=== PATIENT | female | born 1945 | race Caucasian/White ===

== ENCOUNTER 2024-01-02 08:54 | Outpatient (CLI) | payer MEDICARE, OTHER, SELFPAY ==
--- NOTE | 2024-01-02 09:15 | US_ITS ---
Patient: MYNOR RAINEY Facility:?[facility] Patient ID:?[id number] Site Patient ID:?[id number]. Site :?1945 Study:?US-Breast Right RT BREAST BIOPSY / DR. DUVALL TO RE-01/02/2024 11:04:03 AM Ordering Physician:?SCOTT CALDERON M.D. Final Report: ULTRASOUND-GUIDED BREAST BIOPSY AND POST-BIOPSY DIGITAL MAMMOGRAM FOR BIOPSY MARKER PLACEMENT CLINICAL HISTORY: Indeterminate nodule. COMPARISON STUDIES: 12/19/2023. TECHNIQUE: Real-time ultrasound with image documentation was used for targeting the breast lesion. Core biopsy specimens were obtained using an automated gun with a 18- gauge biopsy needle. Post-biopsy CC and ML digital mammograms were obtained to document position of the biopsy marker. CONSENT and TIME OUT: The procedure, risks, and alternatives were explained to the patient and a consent was signed. [place] Protocol was followed including pre-procedure verification that relevant information/documentation was available, reviewed and properly matched to the patient; consent accurate and complete; and equipment and supplies available. Time Out was conducted just prior to starting procedure to verify the four required elements: patient identity, correct side/site marked (if applicable), procedure, relevant images/results properly labeled and displayed (if applicable). PROCEDURE: The patient was positioned supine on the ultrasound table. The breast was prepped with ChloraPrep. 8 cc of 1 percent lidocaine used for local anesthesia. Core samples were obtained. A sterile metal biopsy clip was placed percutaneously to tico the lesion position within the breast. The specimens were placed in 10% formalin and sent to the pathology department. Pressure was held on the biopsy site until all bleeding subsided. The skin incision was closed with Steri-Strips. An ice pack was positioned over the biopsy site. Post-biopsy instructions were reviewed with the patient, and a written copy was given to her. LATERALITY: RIGHT breast. LESION: Hypoechoic solid nodule measuring 8 x 7 x 7 millimeters at 6 o`clock 7 cm from the nipple. SUSPICION FOR MALIGNANCY: High. NUMBER OF SAMPLES: 5. BIOPSY CLIP SHAPE: HydroMARK coil. PROXIMITY OF CLIP TO TARGET: Within the lesion. IMPRESSION: Ultrasound-guided breast biopsy. When the pathology report is available, an addendum to this report will be made. 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 This is concordant. Appropriate action recommended. Dictated by: Julio Cesar Duvall MD @01/08/2024 12:36:47 PM / CRL:tremaine Signed by: Julio Cesar Duvall @ 01/02/2024 9:34:44 PM (Electronic Signature) Signed by:?Julio Cesar Duvall MD @01/08/2024 2:11:13 PM (Electronic Signature)
--- NOTE | 2024-01-02 09:15 | US_ITS ---
Patient: MYNOR RAINEY Facility:?[facility] Patient ID:?[id number] Site Patient ID:?[id number]. Site :?1945 Study:?US-Extremity Right RT AXILLA BIOPSY / DR. DUVALL TO-01/02/2024 11:05:14 AM Ordering Physician:?SCOTT CALDERON M.D. Final Report: ULTRASOUND-GUIDED RIGHT AXILLARY LYMPH NODE BIOPSY CLINICAL HISTORY: Indeterminate prominent right axillary lymph node COMPARISON STUDIES: 12/19/2023 TECHNIQUE: Real-time ultrasound with image documentation was used for targeting the right axillary lesion. Core biopsy specimens were obtained using an automated gun with a 18-gauge biopsy needle. CONSENT and TIME OUT: The procedure, risks, and alternatives were explained to the patient and a consent was signed. [place] Protocol was followed including pre-procedure verification that relevant information/documentation was available, reviewed and properly matched to the patient; consent accurate and complete; and equipment and supplies available. Time Out was conducted just prior to starting procedure to verify the four required elements: patient identity, correct side/site marked (if applicable), procedure, relevant images/results properly labeled and displayed (if applicable). PROCEDURE: The patient was positioned supine on the ultrasound table. The right axilla was prepped with ChloraPrep. 8 cc of 1 percent lidocaine used for local anesthesia. Core samples were obtained. A sterile metal biopsy clip was placed percutaneously to tico the lesion position within the right axilla. The specimens were placed in 10% formalin and sent to the pathology department. Pressure was held on the biopsy site until all bleeding subsided. The skin incision was closed with Steri-Strips. An ice pack was positioned over the biopsy site. Post-biopsy instructions were reviewed with the patient, and a written copy was given to her. LATERALITY: Right axilla LESION: Mildly prominent right axillary lymph node measuring 2.3 x 0.6 x 1.0 cm, cortex mildly prominent measuring 3 millimeters within the right axilla. SUSPICION FOR MALIGNANCY: Moderate NUMBER OF SAMPLES: 5 BIOPSY CLIP SHAPE: Oval PROXIMITY OF CLIP TO TARGET: Within IMPRESSION: Ultrasound-guided right axillary lymph node biopsy. When the pathology report is available, an addendum to this report will be made. ACR not applicable Dictated by Julio Cesar Duvall MD @ 01/02/2024 12:43:23 PM --ADDENDUM-- ADDENDUM: Pathology consistent with benign lymph node tissue. No evidence for metastatic carcinoma. This is concordant. Appropriate action recommended regarding the positive RIGHT breast biopsy. Signed by:?Julio Cesar Duvall MD @01/02/2024 12:43:23 PM (Electronic Signature)
--- NOTE | 2024-01-02 10:00 | MM_ITS ---
Patient: MYNOR RAINEY Facility:?[facility] Patient ID:?[id number] Site Patient ID:?[id number]. Site :?1945 Study:?XRay-Breast Right 2D w/ CAD POST CLIP PLACEMENT-01/02/2024 10:16:27 AM Ordering Physician:Camila Final Report: PLEASE SEE ULTRASOUND-GUIDED RIGHT BREAST BIOPSY PERFORMED SAME DAY CRL:tremaine penaloza/Dictated by: Julio Cesar Goyal MD @ 01/02/2024 12:40:00 PM Signed by:?Julio Cesar Goyal MD @01/02/2024 9:34:39 PM (Electronic Signature)
== END 2024-01-02 08:55 | disposition home or self-care (01) ==
LOC: US 09:00
PROVIDERS: PCP Family Medicine; Visit Provider Family Medicine
DX: N63.10 Unspecified lump in the right breast, unspecified quadrant (principal); C50.911 Malignant neoplasm of unspecified site of right female breast; R22.31 Localized swelling, mass and lump, right upper limb; R92.8 Other abnormal and inconclusive findings on diagnostic imaging of breast
CPT/HCPCS: 19083; 38505; 76942; 77065; 88305; 88360; 88361; 88377; A4648; A4649

== ENCOUNTER 2024-01-24 12:35 | Outpatient (RCR) | payer MEDICARE, OTHER, SELFPAY ==
--- NOTE | 2024-01-24 15:38 | OT.OPLE2 ---
OT Outpatient Lymphedema Eval* OT Outpatient Lymphedema Eval* Start: 01/24/24 13:01 Freq: Status: Active Protocol: Document 01/24/24 13:37 AMB (Rec: 01/24/24 15:34 AMB [id number]) E-signed By Zora Dodge, OTR/L, CLT, DOCK SUPERINTENDENT OT Outpatient Evaluation Details Type Type Eval Complexity Low Insurance Information Insurance Information Insurance Information Medicare B,[employer] OT OP Lymphedema Evaluation Current Condition/Medical Diagnosis Referring Provider Dr Watts Treatment Diagnosis Risk for Lymphedema in RUE secondary to Breast CA Date Of Onset 01/25/24 Medical History Medical History HTN Medical History Comments Cardiac Stents, seasonal allergies Surgical History Surgical History Lumpectomy with 33 LN removed in the LUE 17 years ago secondary to breast CA, Cardiac stents Family History Family History of Lymphedema Yes Family History of Lymphedema Comments Pt has a hx of lymphedema in her LUE following breast CA with 33LN removed, 3 LN (+) for CA, pt states that her wellness director told her that she does not have lymphedema but she has morphea in her left arm so she has not been wearing any compression for years, she cannot remember how long. Pt states her left arm has been larger than her right arm but does not feel like it has grown larger since she discontinued her compression. Pt states prior to getting her garments, she had to wrap her arm for a long time. Pt states she was prescribed a steroid cream for her left arm and she feels this has been helping her morphea. Pt denies any hx of cellulitis. Current Work Status Current Work Status Retired Subjective Subjective Pt states she will undergo right breast lumpectomy tomorrow. Pt states they told her they would not need to take any LN as she did have a biopsy which indicated that it would not be necessary. Pt states she is not sure about radiation, will not know this until after her surgery. Pt likes to stay very active, she gardens and has a big house and yard to care for. Pt lost her 3 years ago, lives alone. Living Situation Current Living Situation Private Home/Apartment (Alone) Problem List Problem List Limited Knowledge of Lymphedema Treatment/Condition /Precautions,Limited Knowledge of Skin Care & Infection Precautions,Significant Risk For Infection For Lymphedema Related Complications,Does Not Have a HEP Exercise History Does Patient Exercise Regularly No Exercise Comments Pt states she does not do specific exercise on a regular basis but states she stays very busy. Pt is considering joining the [employer] [place], interested in the pool, discussed the benefit of aqua exercise in relationship to lymphedema. Pain Pain No ROM/Strength ROM/Strength Comments Pt demonstrates full, pain- free AROM of BUE, 5/5 MMT of BUE shoulders, elbows, wrists and hands. Previous Treatment Previous Treatment For Swelling/ MLD,Compression Garment,Multi- Lymphedema Layer Compression Bandages, Exercise,Elevation,Self Massage Previous Treatment/Current Home Program Lymphedema treatment, compression and home program for the LUE lymphedema 17 years ago, pt states she is no longer doing her HEP or wrapping, not using her garments either as her wellness director told her she did not have lymphedema. Compression History Does Patient Currently Wear Compression No During Daytime Does Patient Currently Wear Compression No At Night Current Swelling (Location/Pitting/Texture) Pitting Scale: 0 = No pitting 1+ Tissue returns to normal almost immediately 2+ Tissue returns after 15-30 seconds 3+ Tissue returns after 1-1/2 minutes 4+ Tissue returns after 2-3 minutes N/A Tissue no longer pits due to induration Tissue texture: Soft or indurated Triggering Event & Start Date of Pt will have lumpectomy Swelling/Lymphedema tomorrow, states she will not have LN removed but will possibly need radiation therapy. Clinical Presentation Pitting/Texture No swelling or pitting in the RUE, however, pt does have some mild pitting in the posterior aspect of the LUE elbow and forearm, measurement of the LUE is quite larger than the RUE, concerning that pt likely still has lymphedema in her LUE, encouraged her to consider wearing her garments again. Skin Changes Comments Pt does have skin discoloration/brown spots throughout BUE L>R, this is a symptom / presentation of morphea. Type of Swelling Post Surgery/Traumatic Edema Circumferential Measurements Upper Extremity Left Upper Extremity MCP (in cm) 18.8 Palm (in cm) 19.3 Smallest Wrist Measurement (in cm) 16.5 10 cm Above Smallest Wrist Measurement 22.5 20 cm Above Smallest Wrist Measurement 30.4 30 cm Above Smallest Wrist Measurement 31.8 40 cm Above Smallest Wrist Measurement 30.5 Total Girth in cm 169.8 UE Volume C 304.98 UE Volume D 560.86 UE Volume E 769.81 UE Volume F 772.27 Upper Extremity Volume Total in cm 2,407.92 Right Upper Extremity MCP (in cm) 19.4 Palm (in cm) 19.4 Smallest Wrist Measurement (in cm) 15.7 10 cm Above Smallest Wrist Measurement 19.8 20 cm Above Smallest Wrist Measurement 25.7 30 cm Above Smallest Wrist Measurement 29.3 40 cm Above Smallest Wrist Measurement 30.5 Total Girth in cm 159.8 UE Volume C 251.83 UE Volume D 414.17 UE Volume E 602.66 UE Volume F 711.52 Upper Extremity Volume Total in cm 1,980.18 Assessment Assessment Pt presents 1 day pre- operatively for initiation of lymphedema surveillance program. Following her left lumpectomy (pt states she will not need LN removed), if LN are removed, pt will be at risk for lymphedema in her RUE / upper quadrant due to LN removal. Pt mayneed radiation which would add to her risk. Pt will benefit from skilled OT intervention for pt education, monitoring / surveillance in order to provide early detection / intervention to assure best positive outcomes with fewer lymphedema related complications if the need arises. Pt demonstrates good interest and motivation to be an active participant in her care. Pt asked multiple pertinent questions and received satisfactory answers. Pt was given contact info and encouraged to reach out if more questions arise. Pt does like to regular exercise, especially swimming, and likes to keep active, lives a healthy lifestyle and acknowledges the value in regular medical visits. Pt may also benefit from resumption of treatment / management of her LUE due to lingering s/s of lymphedema, possibly combined with morphea . Patient Goals Patient Goals 1. Pt will demonstrate a general understanding of the lymphatic system, s/s of lymphedema, treatment of lymphedema, implications of untreated lymphedema, s/s of infection and the correlation of infection related to lymphedema. 3 months 2. Pt will be compliant with quarterly assessments for lymphedema surveillance in order to obtain early intervention with best outcomes if needed. 12 months Treatment Plan Treatment Plan Evaluation,Edema Control,Joint Mobilization,Manual Therapy, Wound Care/Scar Management, Therapeutic Exercise, Therapeutic Activities,Self- Care/Home Management,Education Other Treatment Plan 1 visit in 4 weeks, then one visit every 3 months for one year following surgery, or prn if concerns arise. Certification Certification Statement I Certify That: Therapy Services Provided, Therapy Plan Established, Therapy Plan Reviewed Certification Information Clinic ID # [id number] Initial Certification Date 01/24/24 Recertification Due Date 04/23/24 Provider Signature Shows Agreement With POC & Medical Necessity Physician Comment/Change Comment or Changes Physician NPI Number #
== END 2024-05-23 23:59 | disposition home or self-care (01) ==
PROVIDERS: PCP Family Medicine; Visit Provider Surgery
DX: C50.911 Malignant neoplasm of unspecified site of right female breast (principal); Z51.89 Encounter for other specified aftercare
CPT/HCPCS: 97165

== ENCOUNTER 2024-01-25 09:39 | Day surgery (SDC) | payer MEDICARE, OTHER, SELFPAY ==
--- OUTSIDE RECORDS SUMMARY | 2024-01-25 09:42 | XMS_ITS | Clinical Summary ---
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 Name Role Phone Rosario Faulkner DO Primary Care Provider [phone] Allergies No known active allergies Medications Medication Sig Dispensed Refills Start Date End Date Status ASPIRIN 81 MG TAB, DELAYED RELEASEIndications: Coronary atherosclerosis of unspecified type of vessel, sycuan or graft take 1 tablet (81 mg) by oral route once daily 0 7 Active LORazepam (ATIVAN) 0.5 mg tabIndications:Situ ational anxiety,Claustropho hoa Take 2 tabs po 1 hour prior to MRI for anxiety/claust ropobia 2 tablet 0 Active latanoprost (XALATAN) 0.005 % ophthalmic solution INSTILL 1 DROP RIGHT EYE AT BEDTIME 2 Active nitroglycerin (NITROSTAT) 0.4 mg sublingual tabletIndications:A therosclerosis of coronary artery of sycuan heart without angina pectoris, unspecified vessel or lesion type DISSOLVE 1TAB UNDER TONGUE NEEDED FOR CHEST PAIN, MAY REPEAT EVERY 5MINS, IF NO RELIEF AFTER 3 DOSES SEEK MEDICAL ASSISTANCE 25 Tablet 3 Active hydroCHLOROthiazide (HCTZ) 25 mg tabletIndications:E ssential hypertension Take 1 Tablet (25 mg) by mouth once daily. 90 Tablet 3 3 Active betamethasone dipropionate 0.05% (DIPROSONE 0.05% CREAM) 0.05 % creamIndications:Mo rphea Apply topically to affected area(s) two times daily. For the chest, back, neck and left arm 90 g 2 3 Active atorvastatin (LIPITOR) 80 mg tabletIndications:H yperlipidemia, unspecified hyperlipidemia type Take 1 Tablet (80 mg) by mouth at bedtime. 90 Tablet 3 4 Active levothyroxine (SYNTHROID) 112 mcg tabletIndications:H ypothyroidism, unspecified type Take 1 Tablet (112 mcg) by mouth once daily. 90 Tablet 3 4 Active montelukast (SINGULAIR) 10 mg tabletIndications:E nvironmental allergies Take 1 Tablet (10 mg) by mouth at bedtime. 90 Tablet 3 4 Active fluticasone (50 mcg per actuation) nasal solution (FLONASE)Indication s:Environmental allergies Inhale 2 Sprays to both nostrils once daily. 48 mL 1 4 Active timoloL maleate (TIMOPTIC) 0.5 % ophthalmic solution Place 1 Drop into both eyes once daily. 4 Active calcium carbonate (CALCIUM 600 ORAL) Take by mouth. Ac tive cholecalciferol (Vitamin D) 1,000 unit tablet Take 1,000 units by mouth once daily. Active B3/B5/B6/B7/folic/B 12/inosit/C (B COMPLEX-VITAMIN C ORAL) Take by mouth. Active ketoconazole 2% topical (NIZORAL) creamIndications:Se borrheic dermatitis Apply to affected area on nose, face twice daily as needed for scaling 30 g 2 4 Active carvediloL (COREG) 6.25 mg tabletIndications:A therosclerosis of coronary artery of sycuan heart without angina pectoris, unspecified vessel or lesion type TAKE 1 TABLET BY MOUTH TWICE A DAY WITH MEALS 180 Tablet 1 4 Active lisinopriL (PRINIVIL; ZESTRIL) 10 mg tabletIndications:E ssential hypertension TAKE 1 TABLET BY MOUTH EVERY DAY 90 Tablet 1 4 Active estradioL (ESTRACE) 0.01% (0.1 mg/g) vaginal creamIndications:Va ginal atrophy Apply 1 gm topically to affected areas for 10 days 42.5 g 3 3 024 Discontinued(*M ed complete/Regime n complete/Level of care change) carvediloL (Coreg) 6.25 mg tabletIndications:A therosclerosis of coronary artery of sycuan heart without angina pectoris, unspecified vessel or lesion type Take 1 Tablet (6.25 mg) by mouth two times daily with meals. 180 Tablet 3 3 024 Discontinued lisinopriL (PRINIVIL; ZESTRIL) 10 mg tabletIndications:E ssential hypertension Take 1 Tablet (10 mg) by mouth once daily. 90 Tablet 3 3 024 Discontinued Active Problems Problem Noted Date Diagnosed Date Stage 3a chronic kidney disease 09/19/2022 Hiatal hernia 09/19/2022 Overview: [address] - moderate with 2018 imaging IPMN (intraductal papillary mucinous neoplasm) 1 10/09/2017 Overview: Mucinous pancreatic neoplasm 1.6 cm - MRI 07/2018 - follow up MRI 1 year MRI 2019: 1. 1.7 cm cystic lesion within the pancreatic head which is most consistent with side-branch IPMN. No evidence for main duct extension. Recommend follow-up examination in 1 year. Microscopic colitis 10/24/2008 Overview: Colonoscopy done 09/2014 - due in 5 years Family history of colonic polyps 10/24/2008 Overview: Colonoscopy 10/2008, Colonoscopy in 5 years. Colonoscopy 09/2014 collagenous colitis, repeat in 5 year Colonoscopy 03/2020 normal, repeat in 5 years Unspecified essential hypertension 12/01/2006 DYSLIPIDEMIA Overview: Lipids 12/17 at the hospital Coronary atherosclerosis of unspecified type of vessel, sycuan or graft Overview: STATUS POST OLD MYOCARDIAL INFARCTION Unspecified hypothyroidism REMOTE HISTORY OF PLEURISY Malignant neoplasm of breast (female), unspecifi ed site Overview: 2006 Resolved Problems Problem Noted Date Diagnosed Date Resolved Date Tobacco use disorder 023 Encounters Date Type Department Care Team Description 01/15/2024 Refill [facility] [address], [place] [id number] Shaqra, Rosario Rica, DO Refill Request (Carvedilol, Lisinopril) 01/10/2024 9:20 AM CDT Preop Visit [facility] [address] [facility] [address] Shaqra, Rosario Rica, DO Blood Pressure (Continued elevated readings); Preoperative Exam ([facility] - Dr. Watts - Reji lumpectomy ) 01/09/2024 3:15 PM CDT Office Visit [facility] [address] [place] [address] Val Watts MD Consult (Right breast cancer referred by Dr. Opal Faulkner) 01/09/2024 Travel 01/09/2024 Orders Only [facility] [address] [facility] [address] Shaqra, Rosario Rica, DO 1 scan: (1-Ord) [place], ZAC CLIP REPLACEMENT RT, 01/02/2024 01/08/2024 Orders Only [facility] [address] [place] [address] Shaqra, Rosario Rica, DO 1 scan: (1-Ord) [facility], GUIDED BREAST BIOPSY RT, 01/02/2024 01/06/2024 Orders Only [facility] [address] [place] [address] Shaqra, Rosario Rica, DO 1 scan: (1-Ord) [facility], BIOSY LYMPH AXILLARY, 01/02/2024 01/02/2024 Lab Requisition [facility] [phone] Unknown, Doctor 01/02/2024 Lab Requisition [facility] [phone] Unknown, Doctor 12/28/2023 10:30 AM CDT [place] [facility] [place] [address] [place] [address] Francia Hernandez MD Derm Problem 12/28/2023 Travel 12/20/2023 Orders Only [facility] [address] [place] [address] Shaqra, Rosario Rica, DO <No scans attached> 12/19/2023 3:15 PM CDT Ancillary Procedure [facility] [address] [facility] [address] 12/19/2023 2:30 PM CDT Ancillary Procedure [facility] [address] [facility] [address] 12/19/2023 Ancillary Orders [facility] [address] [facility] [address] Shaqra, Rosario Rica, DO 12/19/2023 Travel 12/15/2023 2:20 PM CDT Ancillary Procedure [facility] [address] [facility] [address] 12/15/2023 1:45 PM CDT Orders Only [facility] [facility] [address] [place] [place] [facility] 12/15/2023 Travel 12/07/2023 Telephone [facility] [address] [facility] [address] Shaqra, Rosario Rica, DO Lab 11/17/2023 1:30 PM TRUCK SWITCHER Orders Only [facility] [address] [facility] [place] [facility] 11/17/2023 Telephone [facility] [address] [place] [address] Keithqra, Rosario Rica, DO Blood Pressure Readings 11/17/2023 Travel 10/30/2023 Telephone [facility] [address] Shaqra, Rosario Rica, DO Blood Pressure from Last 3 Months Immunizations Name Administration Dates Next Due AMB INFLUENZA IIV3 (AGE 65+ YRS) PF (Flu Clinic Only) 07/11/2019 AMB Influenza, IIV3 (Age >=3 years)(Flu Clinic Only) 07/09/2008 Amb Influenza, Inact (High-d ose) (Flu Clinic Only) 06/07/2016 COVID-19 vaccine (Moderna 100mcg/0.5mL) MD SAWYERV 11/27/2020,10/30/2020 Influenza, High-dose Inactivated 018,06/07/2016,06/18/2015,06/16,07/07/2013 Influenza, High-dose Quadriv alent Inactivated 06/07/2023,05/11/2022 Influenza, IIV3 (Age 6-35 mos) 06/20/2011,2009 Influenza, IIV3 (Age >=3 years) 06/27/20 12,06/20/2011,05/25/2010,06/10,07/09/2008,07/12/2007,06/28/2005 ,07/16/2004 Influenza, Inactivated AIIV4 (Age 65+ Years) Preserv Free 05/24/2021 Influenza, Inactivated IIV3 (Age 65+ Years) Preserv Free 07/01/2018,06/13/2017 Pneumococcal Conj 20-valent (Prevnar 20) 06/14/2023 Pneumococcal Poly,23-Valent (Pneumovax) 06/16/2014,06/10/2009 Pneumococcal conj 13-Valent (Prevnar 13) 03/16/2015 RSV, Recombinant ADJ Reconst ituted (Arexvy 120MCG/0.5mL) 07/13/2023 Tdap 12/07/2018,12/18/2006 Zoster (Shingrix-RZV, recombinant) 04/20/2020, Zoster (Zostavax-ZVL, live) 10/05/2012 Family History Medical History Relation Name Comments Cancer-prostate Brother 60's yrs old Genetic Other 1 Great Grandmoth er Glaucoma~Grandparent Hypertension Genetic Other 2 Parents-t Hyper tension~diabetes - nephew Genetic Other 3 Parents-t Hyper tension~Migraines- younger brother ~diabetes - nephew Genetic Other 4 Family history is significant for premature coronary artery disease. Cancer No Family History Cancer-breast No Family History Cancer-colon No Family History Cancer-ovarian No Family History Relation Name Status Comments Brother Other 1 Other 2 Other 3 Other 4 Social History Tobacco Use Types Packs/Day Years Used Date Smoking Tobacco: Former Cigarettes 1 30 0 09/11/1973 - 09/11/2003 Smokeless Tobacco: Never Tobacco Cessation:Counseling Given: Yes Alcohol Use Standard Drinks/Week Comments Yes 0 (1 standard drink = 0.6 oz pur e alcohol) occassionally PHQ-2 Answer Date Recorded PHQ-2 TOTAL SCORE 0 10/20/2023 Social Connections Answer Date Recorded Frequency of Communication with Friends and Fami ly 0 01/10/2024 Financial Resource Strain Answer Date R ecorded Difficulty of Paying Living Expenses 3 01/10/2024 Difficulty of Paying Living Expenses Not on file 01/10/2024 Food Insecurity Answer Date Recorded Worried About Running Out of Food in the Last Ye ar 1 01/10/2024 Transportation Needs Answer Date Record ed Lack of Transportation (Medical) 1 01/10/2024 Housing Stability Answer Date Recorded Unable to Pay for Housing in the Last Year 1 01/10/2024 Sex and Gender Information Value Date Recorded Sex Assigned at Not on file Gender Identity Not on file Sexual Orientation Not on file Obstetrics History Para Term AB IAB SAB Ectopic Multiple Livin g Live Births 0 0 0 0 0 0 0 0 0 0 Last Filed Vital Signs Vital Sign Reading Time Taken Comments Blood Pressure 130/72 01/10/2024 10:05 AM CDT Pulse 67 01/10/2024 9:32 AM CDT Temperature 36.1 ??C (97 ??F) 11/07/2022 12:00 PM TRUCK SWITCHER Respiratory Rate 16 11/07/2022 1:35 PM TRUCK SWITCHER Oxygen Saturation 96% 01/10/2024 9:32 AM CDT Inhaled Oxygen Concentration - - Weight 78 kg (172 lb) 01/10/2024 9:32 AM CDT Height 163.8 cm (5' 4.5) 10/20/2023 12:59 PM CS T Body Mass Index 29.07 10/20/2023 12:59 PM TRUCK SWITCHER Plan of Treatment Upcoming Encounters Date Type Department Care Team (Late st Contact Info) Description 12/30/2024 10:30 AM CDT Office Visit [facility] [address] [place] [phone] Francia Hernandez MD [address] [place] [phone] Health Maintenance Due Date Last Done Comments COVID-19 vaccine series ( season) 2023 06/22/2023, 07/26/2022, 02/06/2022, Additional history exists Influenza for age 65+ 05/12/2024 06/07/2023 , 05/11/2022, 05/24/2021, Additional history exists BMI (ht and wt on same day) for age 18+ 10/20/2024 10/20/2023, 09/19/2022, 05/24/2021, Additional history exists Depression screening for age 12+ 10/20/2024 10/20/2023, 09/19/2022, 09/19/2022, Additional history exists Medicare Wellness for age 65+ 10/20/2024, 09/19/2022, 05/24/2021, Additional history exists Tetanus booster 12/07/2028 12/07/2018, 05/2007, 12/18/2006 [facility] Colonoscopy through age 75 03/17/203003/17, 03/17/2020, 03/17/2020, Additional history exists Tdap Completed 12/07/2018, 12/18/2006 Hepatitis C screening for ag e 18-79 Completed 11/06/2019 Zoster (shingles) series for age 50+ Completed 04/20/2020, 09/20/2019, 10/05/2012 DEXA/DXA scan for age 65+ Completed 2020, 08/07/2012, 10/09/2008 Pneumococcal series for age 65+ Completed 06/14/2023, 03/16/2015, 06/16/2014, Additional history exists Medical Devices Implanted Type Area Pipe Cutter Device Identifier Shelf Expiration Date Model / Serial / Lot Port X Port Mri 6fr Venous Cath Kit [id number] - [id number] Implanted:Qty: 1 on 08/21/2007 at [facility] Left: Subclavian Vein [employer] [id number] / / [id number] Procedures Procedure Name Priority Date/Time Associated Diagnosis Comments POTASSIUM Routine 01/10/2024 10:17 AM CDT Pre-op exam CREATININE Routine 01/10/2024 10:17 AM CDT Pre-op exam TSH WITH REFLEX Routine 01/10/2024 10:17 AM CDT Hypothyroidism, unspecified type LAB TRACKING EVENT Routine 01/02/2024 9: 45 AM CDT PATH BREAST CORE BIOPSY Routine 01/02/2024 9:45 AM CDT CG HER2 BREAST Routine 01/02/2024 9:45 AM CDT CYTOGENETICS MALIGNANT TISSUE Routine 01/02/2024 9:45 AM CDT XR MAMMO POST CLIP PLCMT RT Routine 01/02/2024 12:00 AM CDT Abnormal mammogram of right breast US BIOPSY BREAST NEEDLE W BELL W GUIDE RIGHT [facility] 01/02/2024 12:00 AM CDT Abnormal mammogram of right breast US BIOPSY LYMPH NODE BREAST CENTER [facility] 01/02/2024 12:00 AM CDT Abnormal mammogram of right breast US BREAST UNILATERAL RIGHT LIMITED ERIN 12/19/2023 2:59 PM CDT Abnormal mammogram XR MAMMO ADRIENNE UNI ADDL VIEWS RIGHT [facility] 12/19/2023 2:41 PM CDT Abnormal mammogram XR MAMMO ADRIENNE BILAT SCREEN Routine 12/15/2023 2:18 PM CDT Visit for screening mammogram BASIC METABOLIC PANEL Routine 12/15/2023 1:55 PM CDT Unspecified essential hypertension BASIC METABOLIC PANEL Routine 11/17/2023 1:44 PM TRUCK SWITCHER Elevated serum creatinine XR DXA BONE DENSITY 2 SITES AXIAL Routine 06/21/2021 12:00 PM CDT Menopause COLONOSCOPY 03/17/2020 8:03 AM CDT ANTI HCV Add On 11/06/2019 2:08 PM TRUCK SWITCHER Need for hepatitis C screening test from Last 3 Months or Most Recently Relevant to Health Maintenance Results * TSH WITH REFLEX (01/10/2024 10:17 AM CDT) TSH 0.49 0.27 - 4.20 uIU/mL 01/10/2024 10:38 PM CDT [facility] Blood BLOOD SPECIMEN / Unknown Butterfly / Unknown 01/10/2024 10:17 AM CDT 01/10/2024 10:19 AM CDT Narrative [facility] - 01/10/2024 10:38 PM CDT In Adults, TSH values between 5.00 and 10.00 uIU/ml do not necessarily indicate the presence of Hypothyroidism. Correlation with clinical findings such as presence of goiter and/or Thyroperoxidase (TPO) Antibody may be helpful. For more information please refer to ANTHONY 2004; 291: 228-238. [employer] CHEMISTRY Performing Organization Address City/[facility]/ZIP Co de Phone Number [facility] [address] [place] [address], * POTASSIUM (01/10/2024 10:17 AM CDT) Pathologist [facility] POTASSIUM 4.5 3.5 - 5.1 mmol/L 01/10/2024 10:38 PM CDT [facility] Blood BLOOD SPECIMEN / Unknown Butterfly / Unknown 01/10/2024 10:17 AM CDT 01/10/2024 10:19 AM CDT [employer] CHEMISTR[facility] Performing Organization Address City/[facility]/ZIP Co de Phone Number [facility] [address] [place] [address], * (ABNORMAL) CREATININE (01/10/2024 10:17 AM CDT) eGFR 40(L) >90 mL/min/1.7 3m2 01/10/2024 10:38 PM CDT [facility] Comment:As of 2021, eG FR is calculated by the CKD-EPI creatinine equation without race adjustment. ??eGFR can be influenced by muscle mass, exercise, and diet. ??The reported eGFR is an estimation only and is only applicable if the renal function is stable. CREATININE 1.36(H) 0.50 - 0.90 mg/dL 01/10/2024 10:38 PM CDT [facility] Blood BLOOD SPECIMEN / Unknown Butterfly / Unknown 01/10/2024 10:17 AM CDT 01/10/2024 10:19 AM CDT Rosarioopal Strauss Keithlulu DO CHEMISTRY Performing Organization Address [facility] Co de Phone Number [facility] [address] [place] [address], * LAB TRACKING EVENT (01/02/2024 9:45 AM CDT) Other (Other) Client Collect / Unknown 01/02/2024 9:45 AM CDT 01/02/2024 9:15 PM CDT Doctor Unknown LAB BILL ONLY Performing Organization Address [facility] Co de Phone Number [facility] [address] [place] [address], * PATH BREAST CORE BIOPSY (01/02/2024 9:45 AM CDT) Case Report Pathology Report ?Case: [id number] ? Authorizing Provider: ??Unknown, Doctor ?Collected: ? 01/02/2024 0945 ? Ordering Location: ? [facility] ?Received: ?01/03/2024 0811 ? Pathologist: ? Carlita Cox MD ? Specimens: ?? A) - Right Breast Core Ultrasound Biopsy ? B) - Right Axilla ? 01/09/2024 4:52 PM CDT [facility] Amendment 01/05/2024 - Amendment issued to incorporate ancillary studies. 01/09/2024 - Amendment issued to incorporate ancillary HER2 FISH studies. 01/09/2024 4:52 PM CDT [facility] Final Diagnosis A) RIGHT BREAST, 6:00, 7 CM FROM NIPPLE, ULTRASOUND-GUIDED CORE BIOPSY: 1. 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 a. Carrollton grade: I of III; Tristen score: 5 of 9 ?? b. Angio-lymphatic invasion: Absent ?? c. Associated DCIS: Present ?? d. Subtype: Solid ? e. Grade of DCIS: 2 of 3 2. Breast Ancillary Testing: ?a. Hormone Receptors: ?Estrogen receptor: Positive (99%, strong staining) ?Progesterone receptor: Negative ?b. HER2 by IHC: Equivocal (2+ by manual morphometry) ? HER2 by FISH: Negative ?HER2/CEP17 ratio: 1.16 ?HER2 signals/cell: 2.32 ?CEP17 signals/cell: 2.00 ?c. Ki-67: 5% by image analysis B) RIGHT AXILLA, LYMPH NODE, ULTRASOUND-GUIDED CORE BIOPSY: 1. Fragments of benign lymph node 2. Negative for metastatic carcinoma in this sampling 01/09/2024 4:52 PM CDT [facility] Amendment electronically signed by Curt Parker MD on 01/09/2024 at 4:52 PM Amendment electronically signed by Sugar Cloud MD on 01/05/2024 at 11:44 AM Comment A, B) These are image-guided breast biopsies. The pathologic findings should be correlated with radiologic and clinical findings prior to treatment decisions. Case seen in consultation with Dr. Richardson 01/09/2024 4:52 PM T [facility] Clinical Information SITE A: INDICATION: Right breast mass Lesion description: Irregular indistinct hypoechoic mass Dimensions: 8 x 7 x 7 mm Location: Right breast, 6:00, 7 cm from nipple SITE B: INDICATION: Right axillary lymph node with mild cortical thickening Lesion description: Oval circumscribed and solid Dimensions: 2.3 x 0.6 x 1 cm Location: Right axillary lymph node 01/09/2024 4:52 PM T [facility] Gross Description A) Label: ??Patient's name and right #1 breast Description: 3 Fibrofatty core biopsies Size: 2.1 cm in length by 0.1 cm in diameter Ink color: Black The specimen is submitted in toto in one cassette. Cold ischemic time: Less than 60 minutes, meets current ASCO/CAP guidelines. ?? The specimen was fixed in formalin for a minimum of 6 hours and not longer than 72 hours. B) Label: ??Patient's name and #2 axilla lymph node Description: 3 fibrofatty core biopsies Size: 1.7 cm in length by 0.1 cm in diameter Ink color: Blue The specimen is submitted in toto in one cassette. Cold ischemic time: Less than 60 minutes, meets current ASCO/CAP guidelines. ?? The specimen was fixed in formalin for a minimum of 6 hours and not longer than 72 hours. TRS 01/03/2024. 01/09/2024 4:52 PM CDT [facility] Microscopic Description The final diagnosis is based on microscopic examination of appropriate sections of all specimens. A) The presence of black ink is confirmed on tissue sections. B) The presence of blue ink is confirmed on tissue sections. 01/09/2024 4:52 PM CDT [facility] Cytogenetics Summary Cytogenetic testing has been ordered and will be reported separately. 01/09/2024 4:52 PM T [facility] REPORTING Breast Biomarker Reporting Template BREAST: BIOMARKER REPORTING TEMPLATE - A Protocol posted: 11/30/2022 ?? Test(s) Performed: ? Estrogen Receptor (ER) Status: ?Positive (greater than 10% of cells demonstrate nuclear positivity) ? Percentage of Cells with Nuclear Positivity: ?99 % ? Average Intensity of Staining: ?Strong ? Test Type: ?Laboratory-deve loped test ? Primary Antibody: ?SP1 ?? Test(s) Performed: ? Progesterone Receptor (PgR) Status: ?Negative (less than 1%) ? : ?Internal control cells absent ? Test Type: ?Laboratory-deve loped test ? Primary Antibody: ?636 ?? Test(s) Performed: ? HER2 by Immunohistochemis try: ?Equivocal (Score 2+) ? Percentage of Cells with Uniform Intense Complete Membrane Staining: ?0 % ? Test Type: ?Laboratory-deve loped test ? Primary Antibody: ?4B5 ?? Test(s) Performed: ? HER2 by in situ Hybridization: ?Negative (not amplified) ? Number of Observers: ?2 ? Number of Invasive Tumor Cells Counted: ?25 cells ? Method: ?Dual probe assay ? Average Number of HER2 Signals per Cell: ?2.32 ? Average Number of CEP17 Signals per Cell: ?2 ? HER2 / CEP17 Ratio: ?1.16 ? Aneusomy: ?Not identified ? Heterogeneous Signals: ?Not identified ? Test Type: ?Food and Drug Administration (FDA) cleared (test / vendor): [employer] HER2/Curtis ?? Test(s) Performed: ?Ki-67 ? Ki-67 Percentage of Positive Nuclei: ?5 % ? Primary Antibody: ?MIB1 ?? Cold Ischemia and Fixation Times: ?Meet requirements specified in latest version of the ASCO / CAP Guidelines ?? Testing Performed on Block Number(s): ?A1 METHODS ?? Fixative: ?Formalin ?? Image Analysis: ?Performed ? Method: ?Aperio morphometric analysis ? Biomarkers Scored by Image Analysis: ?ER ? Biomarkers Scored by Image Analysis: ?PgR ? Biomarkers Scored by Image Analysis: ?Ki-67 ?? Comment(s): ?1,726 NUCLEI ANALYZED FOR KI67. The FDA approved [employer] DNA Probe Kit was developed and its performance characteristics determined by Scan. ??This test incorporates minor modifications to protocol and validated by the [facility] and [facility] to yield equivocal or superior performance. This FISH test uses a multiplex probe stain procedure. 01/09/2024 4:52 PM CDT [facility] Additional Information Interpreted at [facility], Central Laboratory - [address] [facility] [address], [place] [address] Patients with breast cancers that are HER2 IHC 3+ or IHC 2+/GIORGIO amplified may be eligible for several therapies that disrupt HER2 signaling pathways. Invasive breast cancers that test 'HER2-negative' (IHC 0, 1+ or 2+/GIORGIO not-amplified) are more specifically considered 'HER2-negative for protein overexpression/ge ne amplification' since non-overexpressed levels of the HER2 protein may be present in these cases. Patients with breast cancers that are HER2 IHC 1+ or IHC 2+/GIORGIO not amplified may be eligible for a treatment that targets non-amplified/non -overexpressed levels of HER2 expression for cytotoxic drug delivery (IHC 0 results do not result in eligibility currently). 01/09/2024 4:52 PM CDT [facility] Other (Right Breast Core Ultrasound Biopsy) 01/02/2024 9:45 AM CDT 01/03/2024 8:11 AM CDT Specimen (specimen) (Right Axilla) 01/02/2024 9:48 AM CDT 01/03/2024 8:11 AM CDT Doctor Unknown PATHOLOGY/CYTOLOGY Performing Organization Address City/[facility] Co de Phone Number [facility] [address] [address], [place] * CG HER2 BREAST (01/02/2024 9:45 AM CDT) Other (Right Breast Core Ultrasound Biopsy) 01/02/2024 9:45 AM CDT 01/05/2024 11:44 AM CDT Doctor Unknown LABORATORY Performing Organization Address City/[facility]/ZIP Co de Phone Number [facility] [address] [address], [place] * CYTOGENETICS MALIGNANT TISSUE STUDIES (01/02/2024 9:45 AM CDT) RFR Breast cancer 01/09/2024 1:01 PM CDT [facility] TEST & RESULT SUMMARY HER2 FISH Breast: See pathology report [id number]. See comments. 01/09/2024 1:01 PM CDT [facility] N[facility] _ 01/09/2024 1:01 PM CDT [facility] [place] Ebook GlueAL LABORATORY COMMENTS This record is used as an internal laboratory test designed for workflow purposes only. 01/09/2024 1:01 PM CDT [facility]-CE NTRAL LABORATORY SOURCE Right Breast Core Ultrasound Biopsy (Paraffin Slides A1 2 uns) [id number] 01/09/2024 1:01 PM CDT [facility]-CE NTRHI LABORATORY Other (Right Breast Core Ultrasound Biopsy) 01/02/2024 9:45 AM CDT 01/05/2024 11:44 AM CDT Doctor Unknown LABORATORY [facility] [address] [place] [address], [place] * US BIOPSY LYMPH NODE BREAST CENTER (01/02/2024 12:00 AM CDT) Anatomical Region Laterality Modality Breast Left Ultrasound Rosario Rica Shaqra DO US * US BIOPSY BREAST NEEDLE W BELL W GUIDE RIGHT (01/02/2024 12:00 AM CDT) Anatomical Region Laterality Modality Breast Right Right Ultrasound Rosario Rica Shaqra DO US * XR MAMMO POST CLIP PLCMT RT (01/02/2024 12:00 AM CDT) Anatomical Region Laterality Modality BREASTS N/A Mammography Rosario Rica Shaqra DO MAMMO * US BREAST UNILATERAL RIGHT LIMITED (12/19/2023 2:59 PM CDT) Anatomical Region Laterality Modality BREASTS, Breast Right Right Ultrasound Narrative 12/19/2023 3:58 PM CDT For Patients: As a result of the Century Cures Act, medical imaging exams and procedure reports are released immediately into your electronic medical record. ??You may view this report before your referring provider. ?? If you have questions, please contact your health care provider. RIGHT BREAST ULTRASOUND, 12/19/2023 PLEASE SEE [id number] FOR DIGITAL RIGHT MAMMOGRAM SAME DAY. Rosario Rica Shaqra DO US * XR MAMMO ADRIENNE UNI ADDL VIEWS RIGHT (12/19/2023 2:41 PM CDT) Anatomical Region Laterality Modality BREASTS, Breast Right Mammograph y 12/19/2023 3:27 PM CDT Impressions 12/19/2023 3:58 PM CDT Suspicious mass RIGHT breast 6 o'clock 7 cm from the nipple measuring 8 x 7 x 7 millimeters. Indeterminate RIGHT axillary lymph node measuring 2.3 x 0.6 x 1.0 cm. RECOMMENDATIONS: Ultrasound-guided core needle biopsy of the RIGHT breast lesion and RIGHT axillary lymph node. Results and recommendations discussed with the patient. BI-RADS Category 4: Suspicious Dictated by: Julio Cesar Goyal MD @12/19/2023 3:27:05 PM PATIENTS: You will also receive a letter with your examination results in an easy to read format. ??If you have questions about your results, please contact your referring provider. Narrative 12/19/2023 3:58 PM CDT For Patients: As a result of the Cures Act, medical imaging exams and procedure reports are released immediately into your electronic medical record. ??You may view this report before your referring provider. ?? If you have questions, please contact your health care provider. ADDITIONAL VIEWS RIGHT DIGITAL MAMMOGRAM USING TOMOSYNTHESIS, 12/19/2023 RIGHT BREAST ULTRASOUND, 12/19/2023 CLINICAL HISTORY: RIGHT breast mass/asymmetry. COMPARISON: 12/15/2023. TECHNIQUE: Digital RIGHT mammogram in two projections. ??Tomosynthesis utilized. ?? Real-time ultrasound imaging of RIGHT breast with imaging documentation. BREAST COMPOSITION: There are areas of scattered fibroglandular density. FINDINGS: 3D spot compression CC/MLO RIGHT breast mammogram images submitted. Persistent density with architectural distortion posterior RIGHT breast at the inferior aspect. Adjacent benign calcification. Targeted RIGHT breast ultrasound performed. At 6 o'clock 7 cm from the nipple, there is a hypoechoic irregularly marginated mass with distal acoustic shadowing. This is taller than wide measuring 8 x 7 x 7 millimeters. RIGHT axillary lymph node is present measuring 2.3 x 0.6 x 1.0 cm with possible mild thickening of the cortex. Rosario Rica Faulkner DO MAMMO * XR MAMMO ADRIENNE BILAT SCREEN (12/15/2023 2:18 PM CDT) Anatomical Region Laterality Modality BREASTS, Breast Left, Breast Right Bilateral Mammography 12/15/2023 3:09 PM CDT Impressions 12/15/2023 4:30 PM CDT RIGHT breast asymmetry/mass. RECOMMENDATIONS: Additional mammographic views of the RIGHT breast including 3D spot compression CC/MLO. RIGHT breast ultrasound may also be required. BI-RADS Category 0: Incomplete: Need Additional Imaging Evaluation and/or Prior Mammograms for Comparison A member of the breast health care team will contact the patient to schedule the required additional imaging appointment(s). Dictated by: Julio Cesar Goyal MD @12/15/2023 3:09:46 PM / Echo PATIENTS: You will also receive a letter with your examination results in an easy to read format. ??If you have questions about your results, please contact your referring provider. Narrative 12/15/2023 4:30 PM CDT For Patients: As a result of the Cures Act, medical imaging exams and procedure reports are released immediately into your electronic medical record. ??You may view this report before your referring provider. ?? If you have questions, please contact your health care provider. BILATERAL DIGITAL SCREENING MAMMOGRAM WITH TOMOSYNTHESIS AND COMPUTER-AIDED DETECTION, 12/15/2023 CLINICAL HISTORY: Routine screening exam. COMPARISON: 11/22/2022, 11/15/2021. TECHNIQUE: Digital mammogram in CC and MLO projections including computer-aided detection (CAD). Tomosynthesis utilized. BREAST COMPOSITION: There are areas of scattered fibroglandular density. FINDINGS: RIGHT Breast: Focal asymmetric density lower breast 8 cm from the nipple. LEFT Breast: No suspicious findings. Rosario Rica Shaqra DO MAMMO * (ABNORMAL) BASIC METABOLIC PANEL (12/15/2023 1:55 PM CDT) Only the most recent of2 resultswithin the time period is included. SODIUM 133(L) 136 - 145 mmol/L 12/15/2023 10:16 PM CDT [facility] POTASSIUM 5.0 3.5 - 5.1 mmol/L 12/15/2023 10:16 PM CDT [facility] CHLORIDE 97(L) 98 - 107 mmol/L 12/15/2023 10:16 PM CDT [facility] CO2,TOTAL 24 22 - 29 mmol/L 12/15/2023 10:16 PM CDT [facility] ANION GAP 12 5 - 18 12/15/2023 10:16 PM CDT [facility] GLUCOSE 84 70 - 99 mg/dL 12/15/2023 10:16 PM CDT [facility] CALCIUM 9.3 8.8 - 10.2 mg/dL 12/15/2023 10:16 PM CDT [facility] BUN 22 8 - 23 mg/dL 12/15/2023 10:16 PM CDT [facility] CREATININE 1.20(H) 0.50 - 0.90 mg/dL 12/15/2023 10:16 PM CDT [facility] BUN/CREAT RATIO 18 10 - 20 10:16 PM CDT [facility] eGFR 47(L) >90 mL/min/1.7 3m2 12/15/2023 10:16 PM CDT [facility] Comment:As of 2021, eG FR is calculated by the CKD-EPI creatinine equation without race adjustment. ??eGFR can be influenced by muscle mass, exercise, and diet. ??The reported eGFR is an estimation only and is only applicable if the renal function is stable. Blood BLOOD SPECIMEN / Unknown Butterfly / Unknown 12/15/2023 1:55 PM CDT 12/15/2023 1:55 PM CDT Rosario Faulkner DO [facility] [address] [place] [address], * XR DXA BONE DENSITY 2 SITES AXIAL (06/21/2021 12:00 PM CDT) Anatomical Region Laterality Modality Spine, HIPS, HIPL, HIPR Other Impressions 06/29/2021 1:05 PM CDT Normal bone density. RECOMMENDATIONS: The National Osteoporosis Foundation recommends pharmacologic treatment for patients with T-scores of -2.5 or less, patients with prior history of fragility fractures, or patients with 10-year probability of greater than 3% at hips or greater than 20% of suffering major osteoporotic fractures. Recommend continued optimization of calcium and vitamin D intake through dietary means and/or supplementation and regular exercise. Repeat scan recommended in 3-5 years. Farzana Isabel PA-C [facility] 06/29/2021 Narrative 06/29/2021 1:05 PM CDT For Patients: Results are automatically released to your [facility] ([email or web address]) account once available, in compliance with federal regulations. This means that you may see your results before your provider has had a chance to review them. Please allow 2-3 business days for your provider to comment on the results. XR DXA Bone Mineral Density (BMD) EXAM LOCATION: [address] [address] PATIENT NAME: Iram Napier DATE OF : 1945 EXAM DATE: 06/21/2021 REQUESTING PROVIDER: Lee Ann Delcid MD GENDER AT : female HEIGHT: 5' 4.76 (05/24/2021) WEIGHT: ??172 lb (05/24/2021) MENOPAUSAL STATUS: Postmenopausal RACE/ETHNICITY: White RISK FACTORS: Cancer Treatment and White Race CURRENT MEDICATION FOR BONE LOSS: NONE INDICATION: Screening for osteoporosis COMPARISON DATE(S): 2011 DXA scans are compared to prior studies for a patient only when the two (or more) studies were performed on the same scanner. It is not possible to compare data generated on one scanner to data from another because there are not standards in DXA equipment. This applies even if the two scanners are made by the same press setter. PROCEDURE: Dual-energy x-ray absorptiometry performed with routine technique. Reporting is completed in the form of a T-score. The T-score represents the standard deviation from peak bone mass based on young healthy adult. A Z-score is used for diagnosis in premenopausal women, and for men under the age of 50. FINDINGS: RESULT LUMBAR SPINE L1 - L4 BMD: 1.180 g/cm2 T-Score: - 0.1 Z-Score: + 1.2 Change from prior in 2012: ??Increase 7.2%. RESULTS FEMUR Left femoral neck BMD: 0.968 g/cm2 T-Score: - 0.5 Z-Score: + 1.1 Change from prior in 2012: ??Decrease 5.3%. Right femoral neck BMD: 0.947 g/cm2 T-Score: - 0.7 Z-Score: + 1.0 Change from prior in 2012: ??Decrease 6.3%. Left hip BMD: 1.039 g/cm2 T-Score: + 0.2 Z-Score: + 1.7 Change from prior in 2012: ??Decrease 4.7%. Right hip BMD: 1.035 g/cm2 T-Score: + 0.2 Z-Score: + 1.6 Change from prior in 2012: ??Decrease 6.5%. WHO criteria: Normal: T-score at or above -1 SD Osteopenia: T-score between -1.1 and -2.4 SD Osteoporosis: T-score at or below -2.5 SD Lee Ann Delcid MD DEXA * COLONOSCOPY (03/17/2020 8:03 AM CDT) 03/17/2020 8:03 AM CDT Narrative Transcriptions Mark Abreu MD - 03/17/2020 9:23 AM CDT Patient Name: Iram Napier Procedure Date: 03/17/2020 Gender: Female Date of : 1945 Admit Type: Outpatient Procedure: Colonoscopy Proceduralist: Mark Abreu MD , Janeen Horne (Nurse), Nneka Lai (Nurse) Indications/Pre-Op Diagnosis: Colon cancer screening in patient atincreased risk: Family history of 1st-degree relative with colon polyps before age 60 years, Last colonoscopy: September 2014 Medications: Fentanyl 200 micrograms IV, Midazolam 4 mgIV, The level of sedation administered wasmoderate Procedure Description: The patient had risks, benefits and alternatives explained to andgave informed consent. The patient had a stable cardiopulmonary status and judged an adequate candidate for conscious sedation. The [id number] was passed through the anus and advanced tothe cecum, identified by appendiceal orifice and ileocecal valve. The colonoscopy was performed without difficulty. The patient toleratedthe procedure well. The quality of the bowel preparation was good. The ileocecal valve, appendiceal orifice, and rectum were photographed. Complications: No immediate complications. Estimated Blood Loss & Specimen: Estimated blood loss: none. Specimen collected - None Findings: The perianal and digital rectal examinations were normal. The entire examined colon appeared normal on direct and retroflexion views. Impressions/Post-Op Diagnosis: - The entire examined colon is normal on direct and retroflexionviews. - No specimens collected. Recommendation: - Patient has a contact number available for emergencies. The signsand symptoms of potential delayed complications were discussed with the patient. Return to normal activities tomorrow. Written discharge instructions were provided to the patient. - Resume previous diet. - Continue present medications. - Repeat colonoscopy in 5 years for screening purposes. Moderate Sedation: Moderate (conscious) sedation was administered by the endoscopy nurse and supervised by the endoscopist. The following parameters were monitored: oxygen saturation, heart rate, respiratory rate, blood pressure, adequacy of pulmonary ventilation and reponse to care. Please [facility] and nursing notes for moderate sedation details. Total physician intraservice time was 25 minutes. Mark Abreu MD 03/17/2020 9:23:04 AM This report has been signed electronically. Note Initiated On: 03/17/2020 8:03 AM Procedure Code(s): --- Professional --- 73844, Colonoscopy, flexible; diagnostic, including collection of specimen(s) bybrushing or washing, when performed (separateprocedure) Diagnosis Code(s): --- Professional --- Z83.71, Family history of colonic polyps CPT copyright 2019 [employer]. All rights reserved. The codes documented in this report are preliminary and upon branding machine operator reviewmay be revised to meet current compliance requirements. Scope In: 8:48:31 AM Scope Withdrawal Time 0 hours 6 minutes 49 seconds Scope Out: 9:09:04 AM Mark Abreu MD PROCEDURE ORD * ANTI HCV (11/06/2019 2:08 PM TRUCK SWITCHER) HEPATITIS C ANTIBODY Non-React jose carlos Non-React jose carlos 11/07/2019 12:35 AM TRUCK SWITCHER [facility] Comment:Antibodies to HCV no t detected; does not exclude the possibility of exposure to HCV. Blood BLOOD SPECIMEN / Unknown Butterfly / Unknown 11/06/2019 2:08 PM TRUCK SWITCHER 11/06/2019 2:08 PM TRUCK SWITCHER Lee Ann Delcid MD SEND OUTS [facility] [address] [place] [address], [place] from Last 3 Months or Most Recently Relevant to Health Maintenance Advance Directives * Full Code (Latest Code Status on File) Date Activated Date Inactivated Comments 11/07/2022 11:08 AM 11/07/2022 4:14 PM Question Answer Comments Code Status Discussion: Unable to Assess Preferences, Provider to review later Care Teams Restaurant Host/Hostess Relationship Specialty Start Date End Date Rosario Faulkner DO [address] [place] [address] PCP - General Family Practice 02/21/23
[2024-01-25] MEDS: SODIUM CHLORIDE 0.9 % (FLUSH) 10 ML SYRINGE IVF (10:00)
[2024-01-25] MEDS: LACTATED RINGERS 1000 ML 1,000 ML 100 ML IV (10:00)
[2024-01-25 10:07] VITALS: BP 160/75; PULSE 66; RESP 16; TEMP 36.6; O2SAT 97; BMI 29.5
--- NOTE | 2024-01-25 11:15 | US_ITS ---
Patient: MYNOR RAINEY Facility:?[facility] RIS Patient ID:?[id number] Site Patient ID:?[id number] Site :?1945 Study:?US-Breast Right DSM to read-01/25/2024 11:43:59 AM Ordering Physician:?Val Watts Final Report: BREAST WIRE LOCALIZATION USING ULTRASOUND GUIDANCE CLINICAL HISTORY: Invasive ductal carcinoma RIGHT breast. LATERALITY: RIGHT breast. LESION: Biopsy-proven mass RIGHT breast 6 o`clock 7 cm from the nipple measuring 8 x 7 x 7 millimeters. LOCALIZATION WIRE: Kopans hookwire. TECHNIQUE: The localization wire was placed using real-time ultrasound guidance with image documentation. Cranial-caudal and medial-lateral digital mammograms were obtained after localization wire placement. CONSENT and TIME OUT: The procedure, risks, and alternatives were explained to the patient and a consent was signed. [place] Protocol was followed including pre-procedure verification that relevant information/documentation was available, reviewed and properly matched to the patient; consent accurate and complete; and equipment and supplies available. Time Out was conducted just prior to starting procedure to verify the four required elements: patient identity, correct side/site marked (if applicable), procedure, relevant images/results properly labeled and displayed (if applicable). PROCEDURE: The skin was prepped with ChloraPrep and 6 cc of 1% lidocaine was injected for local anesthesia. The localization wire was placed within or near the targeted breast lesion using ultrasound guidance. The patient tolerated the procedure well. PROXIMITY OF WIRE TO LESION: The wire is located within a lesion adjacent to the clip. IMPRESSION: Successful breast wire localization. ACR not applicable Dictated by Julio Cesar Goyal MD @ 01/25/2024 12:27:21 PM prasannaj/Dictated by: Julio Cesar Goyal MD @ 01/25/2024 12:27:00 PM Signed by:?Julio Cesar Goyal MD @01/25/2024 1:07:58 PM (Electronic Signature)
--- NOTE | 2024-01-25 11:22 | P.GSOP_ITS ---
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 This was biopsied and found to be an invasive ductal carcinoma, grade 1, ER positive, MO negative and HER2 negative. She had an enlarged lymph node in the right axilla. This was biopsied and found to be benign. We discussed options for management. She preferred to proceed with lumpectomy. Because of her age, the low-grade, small tumor, the benign lymph node biopsy and the fact that she did develop lymphedema in her left arm which was quite significant for her, we discussed options sentinel node biopsy verses omitting the sentinel node biopsy and proceeding with radiation alone. This was discussed at multidisciplinary conference. Ultimately it was decided that it was reasonable to proceed with lumpectomy alone followed by radiation. The patient agreed with this plan. Procedure Description: After discussing the risks and benefits of the procedure, the patient signed informed consent.? The operative site was marked and the patient was brought to the operating room and placed on the operating table in supine position.? Care was taken to pad the patient's pressure points.?? The patient was then given sedation by anesthesia.?? The operative site was then prepped and draped in the usual sterile fashion.? A time-out was then performed. A curvilinear incision was made at the inferior aspect of the nipple-areolar complex after injecting local anesthetic. Dissection was taken down into the subcutaneous fat using cautery. A subcutaneous plane was then created inferiorly until the localizing wire was encountered. The breast tissue was then dissected around the wire down to muscle fascia posteriorly using cautery. The specimen was removed and marked with ink for margins. This was sent for x- ray. X-ray showed the wire, the calcifications and the clip. This was then sent for margins. Grossly the posterior and medial margin appeared negative, however the tissue here was somewhat torn and it appeared possible that the margin could appear closer. Therefore, I elected to take an additional margin of tissue medially and posteriorly to ensure negative margins. This was done using cautery. This was then inked again for margins, leaving the old medial margin free of ink. This was sent to pathology in formalin. Hemostasis appeared excellent at the end of the procedure. The lumpectomy cavity was marked with clips. Two clips were placed close together on the chest wall in the area where the mass was removed. The skin was then closed with 3-0 Vicryl dermal and 4-0 Monocryl running subcuticular suture. Sterile dressings were then applied. ? The patient was then woken and transported to the recovery area in stable condition. ? The patient tolerated the procedure well. Findings: 1. Specimen x-ray containing the biopsy clip 2. Right breast lumpectomy specimen with close medial and posterior margins; this margin was reexcised. Anesthesia: MAC Surgeon: Val Watts MD Estimated blood loss (mL): 5 Additional Specimen Information: 1. Right breast lumpectomy 2. Re-excision right breast posterior medial margin Condition: stable Disposition: same day
--- NOTE | 2024-01-25 12:00 | MM_ITS ---
Patient: MYNOR RAINEY Facility:?[facility] Patient ID:?[id number] Site Patient ID:?[id number] Site :?1945 Study:?XRay-Breast Right SPECIMEN-01/25/2024 12:51:02 PM Ordering Physician:Camila Final Report: RIGHT BREAST SPECIMEN RADIOGRAPH CLINICAL HISTORY: RIGHT breast cancer. COMPARISON: 12/19/2023, 01/25/2024. FINDINGS: Two-view specimen film submitted RIGHT breast. Localization wire is present which is located through the biopsied mass. The biopsy clip is also present on the edge of the specimen. IMPRESSION: Specimen contains the biopsy clip, localization wire and biopsied mass. Results were immediately verbally reported to the operating room staff by the radiology department staff. ACR not applicable Dictated by Julio Cesar Goyal MD @ 01/25/2024 1:00:41 PM jj/Dictated by: Julio Cesar Goyal MD @ 01/25/2024 1:00:00 PM Signed by:?Julio Cesar Goyal MD @01/25/2024 1:19:08 PM (Electronic Signature)
--- NOTE | 2024-01-25 12:00 | MM_ITS ---
Patient: MYNOR RAINEY Facility:?[facility] RIS Patient ID:?[id number] Site Patient ID:?[id number] Site :?1945 Study:?Xray-Breast Right DSM to read-01/25/2024 11:43:59 AM Ordering Physician:?Val Watts Final Report: BREAST WIRE LOCALIZATION USING ULTRASOUND GUIDANCE CLINICAL HISTORY: Invasive ductal carcinoma RIGHT breast. LATERALITY: RIGHT breast. LESION: Biopsy-proven mass RIGHT breast 6 o`clock 7 cm from the nipple measuring 8 x 7 x 7 millimeters. LOCALIZATION WIRE: Kopans hookwire. TECHNIQUE: The localization wire was placed using real-time ultrasound guidance with image documentation. Cranial-caudal and medial-lateral digital mammograms were obtained after localization wire placement. CONSENT and TIME OUT: The procedure, risks, and alternatives were explained to the patient and a consent was signed. [place] Protocol was followed including pre-procedure verification that relevant information/documentation was available, reviewed and properly matched to the patient; consent accurate and complete; and equipment and supplies available. Time Out was conducted just prior to starting procedure to verify the four required elements: patient identity, correct side/site marked (if applicable), procedure, relevant images/results properly labeled and displayed (if applicable). PROCEDURE: The skin was prepped with ChloraPrep and 6 cc of 1% lidocaine was injected for local anesthesia. The localization wire was placed within or near the targeted breast lesion using ultrasound guidance. The patient tolerated the procedure well. PROXIMITY OF WIRE TO LESION: The wire is located within a lesion adjacent to the clip. IMPRESSION: Successful breast wire localization. ACR not applicable Dictated by Julio Cesar Goyal MD @ 01/25/2024 12:27:21 PM prasannaj/Dictated by: Julio Cesar Goyal MD @ 01/25/2024 12:27:00 PM Signed by:?Julio Cesar Goyal MD @01/25/2024 1:07:58 PM (Electronic Signature)
[2024-01-25] MEDS: CEFAZOLIN 1 GM inj IVP (12:16)
--- NOTE | 2024-01-25 12:31 | W.ANESCHARGE ---
Anesthesia Charges Start Date/Time Anesthesia Start Date: 01/25/24 Anesthesia Start Time: 11:54 Stop Date/Time Anesthesia Stop Date: 01/25/24 Anesthesia Stop Time: 13:22 Summary Extremes of Age - Over 70 or under 1: [employer]
[2024-01-25] MEDS: LIDOCAINE 1% MDV 20 ML INJECTION (13:01)
[2024-01-25] MEDS: BUPIVACAINE 0.25% 30 ML INJECTION (13:01)
[2024-01-25 13:20] VITALS: BP 114/53; PULSE 67; RESP 16; TEMP 35.9; O2SAT 94
[2024-01-25 13:30] VITALS: BP 119/60; PULSE 60; RESP 16; O2SAT 95
--- NOTE | 2024-01-25 13:37 | W.ANESCHARGE ---
Anesthesia Charges Start Date/Time Anesthesia Start Date: 01/25/24 Anesthesia Start Time: 11:54 Stop Date/Time Anesthesia Stop Date: 01/25/24 Anesthesia Stop Time: 13:22 Summary Extremes of Age - Over 70 or under 1: MDA
[2024-01-25 13:45] VITALS: BP 141/78; PULSE 62; RESP 16; O2SAT 98
== END 2024-01-25 14:08 | disposition home or self-care (01) ==
PROVIDERS: PCP Family Medicine; Visit Provider Surgery
PROC: (CPT 19301; principal; 2024-01-25 12:00)
DX: C50.811 Malignant neoplasm of overlapping sites of right female breast (principal); Z17.0 Estrogen receptor positive status [ER+]
CPT/HCPCS: 19301; 00400; 00404; 19285; 77065; 88305; 88307; 88342; 99100; C1769; J0665; J0690; J2250; J2405; J2704; J3010; J7120

== ENCOUNTER 2024-02-22 08:10 | Outpatient (CLI) | payer MEDICARE, OTHER, SELFPAY ==
--- OUTSIDE RECORDS SUMMARY | 2024-02-22 08:13 | XMS_ITS | Clinical Summary ---
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 Name Role Phone Rosario Faulkner DO Primary Care Provider Allergies No known active allergies Medications Medication Sig Dispensed Refills Start Date End Date Status ASPIRIN 81 MG TAB, DELAYED RELEASEIndications:Co ronary atherosclerosis of unspecified type of vessel, [place] or graft take 1 tablet (81 mg) by oral route once daily 0 07/05/2007 Active LORazepam (ATIVAN) 0.5 mg tabIndications:Situat ional anxiety,Claustrophobi a Take 2 tabs po 1 hour prior to MRI for anxiety/claustro pobia 2 tablet 02/26/2020 Active latanoprost (XALATAN) 0.005 % ophthalmic solution INSTILL 1 DROP RIGHT EYE AT BEDTIME 12/15/2021 Active nitroglycerin (NITROSTAT) 0.4 mg sublingual tabletIndications:Ath erosclerosis of coronary artery of aki[place] heart without angina pectoris, unspecified vessel or lesion type DISSOLVE 1TAB UNDER TONGUE NEEDED FOR CHEST PAIN, MAY REPEAT EVERY 5MINS, IF NO RELIEF AFTER 3 DOSES SEEK MEDICAL ASSISTANCE 25 Tablet 09/19/2022 Active hydroCHLOROthiazide (HCTZ) 25 mg tabletIndications:Ess ential hypertension Take 1 Tablet (25 mg) by mouth once daily. 90 Tablet 3 02/22/2023 Active betamethasone dipropionate 0.05% (DIPROSONE 0.05% CREAM) 0.05 % creamIndications:Morp hea Apply topically to affected area(s) two times daily. For the chest, back, neck and left arm 90 g 2 03/31/2023 Active atorvastatin (LIPITOR) 80 mg tabletIndications:Hyp erlipidemia, unspecified hyperlipidemia type Take 1 Tablet (80 mg) by mouth at bedtime. 90 Tablet 3 10/20/2023 Active levothyroxine (SYNTHROID) 112 mcg tabletIndications:Hyp othyroidism, unspecified type Take 1 Tablet (112 mcg) by mouth once daily. 90 Tablet 3 10/20/2023 Active montelukast (SINGULAIR) 10 mg tabletIndications:Env ironmental allergies Take 1 Tablet (10 mg) by mouth at bedtime. 90 Tablet 3 10/20/2023 Active fluticasone (50 mcg per actuation) nasal solution (FLONASE)Indications: Environmental allergies Inhale 2 Sprays to both nostrils once daily. 48 mL 1 10/20/2023 Active timoloL maleate (TIMOPTIC) 0.5 % ophthalmic solution Place 1 Drop into both eyes once daily. 10/10/2023 Active calcium carbonate (CALCIUM 600 ORAL) Take by mouth. Ac tive cholecalciferol (Vitamin D) 1,000 unit tablet Take 1,000 units by mouth once daily. Active B3/B5/B6/B7/folic/B12 /inosit/C (B COMPLEX-VITAMIN C ORAL) Take by mouth. Active ketoconazole 2% topical (NIZORAL) creamIndications:Sebo rrheic dermatitis Apply to affected area on nose, face twice daily as needed for scaling 30 g 2 12/28/2023 Active carvediloL (COREG) 6.25 mg tabletIndications:Ath erosclerosis of coronary artery of aki[place] heart without angina pectoris, unspecified vessel or lesion type TAKE 1 TABLET BY MOUTH TWICE A DAY WITH MEALS 180 Tablet 1 01/16/2024 Active lisinopriL (PRINIVIL; ZESTRIL) 10 mg tabletIndications:Ess ential hypertension TAKE 1 TABLET BY MOUTH EVERY DAY 90 Tablet 1 01/16/2024 Active Active Problems Problem Noted Date Diagnosed Date Stage 3a chronic kidney disease 09/19/2022 Hiatal hernia 09/19/2022 Overview: [address] - moderate with 2018 imaging IPMN (intraductal papillary mucinous neoplasm) 1 10/09/2017 Overview: Mucinous pancreatic neoplasm 1.6 cm - MRI 07/2018 - follow up MRI 1 year MRI 2020: 1. 1.7 cm cystic lesion within the [...] Coronary atherosclerosis of unspecified type of vessel, aki[place] or graft Overview: STATUS POST OLD MYOCARDIAL INFARCTION Unspecified hypothyroidism REMOTE HISTORY OF PLEURISY Malignant neoplasm of breast (female), unspecifi ed site Overview: 2006 Resolved Problems Problem Noted Date Diagnosed Date Resolved Date Tobacco use disorder 023 Encounters Date Type Department Care Team Description 02/12/2024 Orders Only [facility] [address] [place] [address] Val Watts MD 1 scan: (1-Ord) [place], BREAST LUMPECTOMY W PRE-OP WIRE LOCALIZATION, 01/25/2024 02/06/2024 1:00 PM CDT Office Visit [facility] [address] [facility] [place] [address] Val Watts MD Post-op (Right lumpectomy 01/25/24) 02/06/2024 Travel 01/25/2024 8:00 AM CDT Office Visit [facility] at [address] [place] [address] Val Watts MD 01/25/2024 Lab Requisition [facility] [phone] Val Watts MD 01/15/2024 Refill [facility] [address] [place] [address] Keithqra, Rosario Rica, DO Refill Request (Carvedilol, Lisinopril) 01/10/2024 9:20 AM CDT Preop Visit [facility] [address] [facility] [address] Keithqra, Rosario Rica, DO Blood Pressure (Continued elevated readings); Preoperative Exam ([facility] - Dr. Watts - R lumpectomy ) 01/09/2024 3:15 PM CDT Office Visit [facility] [address] [place] [address] Val Watts MD Consult (Right breast cancer referred by Dr. Opal Faulkner) 01/09/2024 Travel 01/09/2024 Orders Only [facility] [address] [place] [address] Keithqra, Rosario Rica, DO 1 scan: (1-Ord) [place], MM CLIP REPLACEMENT RT, 01/02/2024 01/08/2024 Orders Only [facility] [address] [place] [address] Keithqra, Rosario Rica, DO 2 scans: (2-Ord) [facility] BIOPSY LYMPH AXILLARY, 01/02/2024 01/06/2024 Orders Only [facility] [address] [place] [address] Keithqra, Rosario Rica, DO 1 scan: (1-Ord) [facility] BIOSY LYMPH AXILLARY, 01/02/2024 01/02/2024 Lab Requisition [facility] [phone] Unknown, Doctor 01/02/2024 Lab Requisition [facility] [phone] Unknown, Doctor 12/28/2023 10:30 AM CDT Office Visit [facility] [address] [place] [address] Francia Hernandez MD Derm Problem 12/28/2023 Travel 12/20/2023 Orders Only [facility] [address] [facility] [place] [place] [address] Rosario Faulkner, <No scans attached> 12/19/2023 3:15 PM CDT Ancillary Procedure [facility] [address] [facility] [address] 12/19/2023 2:30 PM CDT Ancillary Procedure [facility] [address] [facility] [address] 12/19/2023 Ancillary Orders [facility] [address] [facility] [address] Rosario Faulkner DO 12/19/2023 Travel 12/15/2023 2:20 PM CDT Ancillary Procedure [facility] [address] [facility] [address] 12/15/2023 1:45 PM CDT Orders Only [facility] [address] [facility] [address] Lab, [place] [facility] 12/15/2023 Travel 12/07/2023 Telephone [facility] [address] [place] [address] Rosario Faulkner, Lab from Last 3 Months Immunizations Name Administration Dates Next Due AMB INFLUENZA IIV3 (AGE 65+ YRS) PF (Flu Clinic Only) 07/11/2019 AMB Influenza, IIV3 (Age >=3 years)(Flu Clinic Only) 07/09/2008 Amb Influenza, Inact (High-d ose) (Flu Clinic Only) 06/07/2016 COVID-19 vaccine (Moderna 100mcg/0.5mL) PF, MDV 11/27/2020,10/30/2020 Influenza, High-dose Inactivated 018,06/07/2016,06/18/2015,06/16,07/07/2013 Influenza, High-dose [...] Sign Reading Time Taken Comments Blood Pressure 136/73 02/06/2024 1:04 PM CDT Pulse 66 02/06/2024 1:04 PM CDT Temperature 36.1 ??C (97 ??F) 11/07/2022 12:00 PM LEAD CYTOGENETIC TECHNOLOGIST Respiratory Rate 16 11/07/2022 1:35 PM LEAD CYTOGENETIC TECHNOLOGIST Oxygen Saturation 98% 02/06/2024 1:04 PM CDT Inhaled Oxygen Concentration - - Weight 77.2 kg (170 lb 4.8 oz) 02/06/2024 1:04 P M CDT Height 163.8 cm (5' 4.5) 10/20/2023 12:59 PM CS T Body Mass Index 28.78 10/20/2023 12:59 PM LEAD CYTOGENETIC TECHNOLOGIST Plan of Treatment Upcoming Encounters Date Type Department Care Team (Late st Contact Info) Description 12/30/2024 10:30 AM CDT Office Visit [facility] [address] [place], [place] [phone] Francia Hernandez MD [address] [place], [place] [phone] Health Maintenance Due Date Last Done Comments COVID-19 vaccine series (2022- season) 2023 06/22/2023, 07/26/2022, 02/06/2022, Additional history [...] Additional history exists Tetanus booster 12/07/2028 12/07/2018, 04/05/2007, 12/18/2006 (Completed outside of [facility]) Colonoscopy through age 75 03/17/203003/17, 03/17/2020, 03/17/2020, Additional history exists Tdap Completed 12/07/2018, 12/18/2006 Hepatitis C screening for ag e 18-79 Completed 11/06/2019 Zoster (shingles) series for age 50+ Completed 04/20/2020, 09/20/2019, 10/05/2012 DEXA/DXA scan for age 65+ Completed 2020, 08/07/2012, 10/09/2008 Pneumococcal series for age 65+ Completed 06/14/2023, 03/16/2015, 06/16/2014, Additional history exists Medical Devices Implanted Type Area Log Processor Operator Device Identifier Shelf Expiration Date Model / Serial / Lot Port X Port Mri 6fr Venous Cath Kit [id number] - [id number] Implanted:Qty: 1 on 08/21/2007 at [facility] Left: Subclavian Vein [employer] [id number] / / [id number] Procedures Procedure Name Priority Date/Time Associated Diagnosis Comments LAB TRACKING EVENT Routine 01/25/2024 12 :34 PM CDT PATH TISSUE EXAM Routine 01/25/2024 12:3 4 PM CDT BREAST LOCALIZATION WIRE PLACEMENT Routine 01/25/2024 12:00 AM CDT Invasive ductal carcinoma of breast, female, right (HC) POTASSIUM Routine 01/10/2024 10:17 AM CDT Pre-op [...] BREAST NEEDLE W BELL W GUIDE RIGHT [facility] 01/02/2024 12:00 AM CDT Abnormal mammogram of right breast US BIOPSY LYMPH NODE BREAST CENTER [facility] 01/02/2024 12:00 AM CDT Abnormal mammogram of right breast US BREAST UNILATERAL RIGHT LIMITED ERIN 12/19/2023 2:59 PM CDT Abnormal mammogram XR MAMMO ADRIENNE UNI ADDL VIEWS RIGHT ERIN 12/19/2023 2:41 PM CDT Abnormal mammogram XR MAMMO ADRIENNE BILAT SCREEN Routine 12/15/2023 2:18 PM CDT Visit for screening mammogram BASIC METABOLIC PANEL Routine 12/15/2023 1:55 PM CDT Unspecified essential hypertension XR DXA BONE DENSITY 2 SITES AXIAL Routine 06/21/2021 12:00 PM CDT Menopause COLONOSCOPY 03/17/2020 8:03 AM CDT ANTI HCV Add On 11/06/2019 2:08 PM LEAD CYTOGENETIC TECHNOLOGIST Need for hepatitis C screening test from Last 3 Months or Most Recently Relevant to Health Maintenance Results * LAB TRACKING EVENT (01/25/2024 12:34 PM CDT) Only the most recent of2 resultswithin the time period is included. Other (Other) Client Collect / Unknown 01/25/2024 12:34 PM CDT 01/27/2024 10:16 AM CDT Val Watts MD LAB BILL ONLY [facility] [address] [place] [address], * PATH TISSUE EXAM (01/25/2024 12:34 PM CDT) Case Report Pathology Report ?Case: [id number] ? Authorizing Provider: ??Val Watts MD ??Collected: ? 01/25/2024 1234 ? Ordering Location: ? [facility] ?Received: ?01/25/2024 1301 ? Pathologist: ? Julio Cesar Erazo MD ? Specimens: ?? A) - Right Breast Lump ? B) - Right Breast ? 01/29/2024 11:44 AM [facility] Final Diagnosis A) RIGHT BREAST, WIRE-LOCALIZED LUMPECTOMY: 1. Invasive lobular carcinoma, Tristen grade I of III ?a. Size: 9 mm ?b. Core biopsy site is associated with tumor 2. Lobular carcinoma in situ (LCIS), classic type 3. Margins: ?a. Invasive carcinoma is 2 mm from the initial medial margin and 6 mm from the anterior margin ?c. See part B below for status of additional posterior-medial margin 4. Breast Ancillary Testing: Performed on prior case ([id number]) ?a. Hormone Receptors: ?Estrogen receptor: Positive (99%, strong staining) ?Progesterone receptor: Negative ?b. HER2 by IHC: Equivocal (2+ by manual morphometry) ? HER2 by FISH: Negative ?HER2/CEP17 ratio: 1.16 ?HER2 signals/cell: 2.32 ?CEP17 signals/cell: 2.00 ?c. Ki-67: 5% by image analysis B) RIGHT BREAST, POSTERIOR-MEDIAL MARGIN, RE-EXCISION: 1. Lobular carcinoma in situ (LCIS), classic type 2. Focal benign skeletal muscle 3. Negative for invasive malignancy 01/29/2024 11:44 AM [facility] Comment In light of more distinctive morphologic features which are identified on the excision specimen relative to the prior biopsy, re-examination of the histologic type was considered and an E-cadherin was performed which demonstrates loss of membranous expression for E-cadherin in the in situ and invasive components, consistent with a lobular phenotype (ILC and LCIS) rather than ductal as initially interpreted on the biopsy ([id number]). Select slides seen in consultation with Dr. Richardson who agrees with the interpretation of lobular carcinoma and LCIS. 01/29/2024 11:44 AM T [facility] Clinical Information RIGHT breast mass measuring 8 mm by imaging at 6:00, 7 cm from the nipple with biopsy showing invasive carcinoma, grade I ([id number]) 01/29/2024 11:44 AM T [facility] Gross Description A) Received fresh, labeled with the patient's name and right breast lumpectomy, is a 28.7 gram,??6.5 (SI) x 4.5 (ML) x 2.3 (AP)??cm wire-localized breast lumpectomy specimen.??The localizing wire is identified within the specimen.??The specimen is inked by the surgical staff in the OR as follows: Anterior--[place] Posterior--Black Superior--Blue Inferior--Red Medial--Green Lateral--Yellow The superior and inferior margins are additionally augmented in the lab. The specimen is serially sectioned from superior to inferior into 9 slices revealing a??0.8 (SI) x 0.8 (ML) x 0.7 (AP)??cm solid and firm, ill-defined mohamud-darby tumor within slices 4-5 with the following characteristics: Biopsy site change: Present in slices 4-6 Biopsy clip: Is grossly identified Closest margin: Medial Distance to margins: Anterior: 0.6 cm Posterior: 0.2 cm Inferior: 2 cm Superior: 1.5 cm Medial: << 0.1 cm Lateral: 2.3 cm The remaining cut surfaces consist of approximately 90% adipose tissue and 10% fibrous tissue with focal coarse spherical calcifications (0.2 x 0.2 cm) within the central aspect of slice 4, 0.6 cm from the nearest posterior margin, and 0.5 cm from the tumor. No other lesions are identified. Extracorporeal Circulation Specialist sections are submitted in 15 cassettes: 1. ??Slice 1, superior margin, perpendicular 2. ??Slice 2, medial half 3. ??Slice 3, medial half 4-7. ??Slice 4, composite, tumor/biopsy site, circumferential margins ?5. ??Tumor/biopsy site (clip site) 8-11. Slice 5, composite, tumor/biopsy site, circumferential margins ?9. ??Tumor/biopsy site 12. Slice 6, medial half 13. Slice 7, medial half 14. Slice 8, medial half 15. Slice 9, inferior margin, perpendicular An annotated photograph including sections taken is uploaded to the case. Time removed from patient: 1234 Time placed in formalin: 1309 Date removed and placed in formalin: 01/25/2024 Cold ischemic time < 60 minutes. The specimen was fixed in formalin for a minimum of 6 hours and not longer than 72 hours. B) Received in formalin, labeled with the patient's name and right reexcision of posterior medial margin breast, is a is a 1.6 g, 2.5 x 2.4 x 0.7 cm cm excision of yellow-darby fibrofatty breast tissue which has been oriented with green ink on the new medial margin. Additional orange, red and black ink is found along the peripheral edges of the new margin. The opposing surface is inked yellow and does not represent a margin. The specimen is serially sectioned into 7 slices revealing 90% soft yellow adipose tissue and 10% intervening thin bands of darby-white fibrous tissue. No masses or suspicious foci are identified. Entirely submitted sequential in 3 cassettes: 1. Slices 1,2 2. Slices 3,4 3. Slices 5,6,7 Time removed from patient: 1300 Time placed in formalin: 1313 Date removed and placed in formalin: 01/25/2024 Cold ischemic time < 60 minutes. The specimen was fixed in formalin for a minimum of 6 hours and not longer than 72 hours. LDW 01/25/2024 ?? 01/29/2024 11:44 AM CDT [facility] Intraoperative Consultation A) RIGHT BREAST, LUMPECTOMY, INTRAOPERATIVE CONSULTATION (Gross Evaluation Only via Telepathology): 1. Tumor grossly identified 2. Biopsy site change is identified grossly 3. Tumor is less than 1 mm from medial margin (possibly disrupted) and 2 mm from the posterior margin (down to fascia per surgeon) Sugar Cloud MD, 01/25/2024 12:55 PM via telepathology with CLYDE Bolton ??Intraoperative consultation, which may have included frozen section preparation, gross specimen examination, and/or cytology touch imprints/smears, was performed by a pathologist during the surgical procedure. ??This testing was performed at: [facility] [address] [place] [address] 01/29/2024 11:44 AM [facility] Microscopic Description The final diagnosis is based on microscopic examination of appropriate sections of all specimens. Immunohistochemis try for E-cadherin was performed on block A9 and demonstrates loss of expression in the invasive and in situ component, consistent with a lobular phenotype. 01/29/2024 11:44 AM [facility] SYNOPTIC REPORTING INVASIVE CARCINOMA OF THE BREAST: Resection INVASIVE CARCINOMA OF THE BREAST: RESECTION - All Specimens 8th Edition - Protocol posted: 05/31/2023 SPECIMEN ?? Procedure: ?Excision (less than total mastectomy) ?? Specimen Laterality: ?Right TUMOR ?? Tumor Site: ?Clock position ?? : ?6 o'clock Tumor Site: ?Distance from nipple (Centimeters): 7 cm Histologic Type: ?Invasive lobular carcinoma Histologic Grade ([place] Histologic Score): ? Glandular (Acinar) / Tubular Differentiation: ?Score 3 ?? Nuclear Pleomorphism: ?Score 1 ?? Mitotic Rate: ?Score 1 ?? Overall Grade: ?Grade 1 (scores of 3, 4 or 5) Tumor Size: ?Greatest dimension of largest invasive focus (Millimeters): 8 mm Tumor Focality: ?Single focus of invasive carcinoma Ductal Carcinoma In Situ (DCIS): ?Not identified Lobular Carcinoma In Situ (LCIS): ?Present Lymphatic and / or Vascular Invasion: ?Not identified Treatment Effect in the Breast: ?No known presurgical therapy MARGINS Margin Status for Invasive Carcinoma: ?All margins negative for invasive carcinoma ?? Distance from Invasive Carcinoma to Closest Margin: ?6 mm ?? Closest Margin(s) to Invasive Carcinoma: ?Anterior REGIONAL LYMPH NODES Regional Lymph Node Status: ?Not applicable (no regional lymph nodes submitted or found) pTNM CLASSIFICATION (AJCC 8th Edition) ?? Reporting of pT, pN, and (when applicable) pM categories is based on information available to the pathologist at the time the report is issued. As per the AJCC (Chapter 1, 8th Ed.) it is the managing physician? s responsibility to establish the final pathologic stage based upon all pertinent information, including but potentially not limited to this pathology report. pT Category: ?pT1b pN Category: ?pN not assigned (no nodes submitted or found) Comment(s): ?Blocks for potential future ancillary studies: A9 (biopsy site present; also consider prior biopsy [id number]) 01/29/2024 11:44 AM CDT [facility] Additional Information Interpreted at [facility] - [address] [facility] [address], [place] [address] 01/29/2024 11:44 AM CDT [facility] Other (Right Breast Lump) 01/25/2024 12:34 PM CDT 01/25/2024 1:01 PM CDT Specimen (specimen) (Right Breast) 01/25/2024 1:00 PM CDT 01/25/2024 1:26 PM CDT Val Watts MD PATHOLOGY/CYTOLO GY [facility] [address] [place] [address], * BREAST LOCALIZATION WIRE PLACEMENT (01/25/2024 12:00 AM CDT) Anatomical Region Laterality Modality Other Val Watts MD IMAGING * TSH WITH REFLEX (01/10/2024 10:17 AM CDT) TSH 0.49 0.27 - 4.20 uIU/mL 01/10/2024 10:38 PM CDT [facility] Blood BLOOD SPECIMEN / Unknown Butterfly / Unknown 01/10/2024 10:17 AM CDT 01/10/2024 10:19 AM CDT Narrative [facility] - 01/10/2024 10:38 PM CDT In Adults, TSH values between 5.00 and 10.00 uIU/ml do not necessarily indicate the presence of Hypothyroidism. Correlation with clinical findings such as presence of goiter and/or Thyroperoxidase (TPO) Antibody may be helpful. For more information please refer to ANTHONY 2004; 291: 228-238. Rosario Faulkner DO CHEMISTRY Performing Organization Address City/[facility]/ZIP Co de Phone Number [facility] [address] [place] [address], * POTASSIUM (01/10/2024 10:17 AM CDT) POTASSIUM 4.5 3.5 - 5.1 mmol/L 01/10/2024 10:38 PM CDT [facility] Blood BLOOD SPECIMEN / Unknown Butterfly / Unknown 01/10/2024 10:17 AM CDT 01/10/2024 10:19 AM CDT [facility] CHEMISTRY Performing Organization Address [facility] Phone Number [facility] [address] [place] [address], * (ABNORMAL) CREATININE (01/10/2024 10:17 AM CDT) eGFR 40(L) >90 mL/min/1.7 3m2 01/10/2024 10:38 PM CDT [facility] Comment:As of 2021, eG FR is calculated by the CKD-EPI creatinine equation without race adjustment. ??eGFR can be influenced by muscle mass, exercise, and diet. ??The reported eGFR is an estimation only and is only applicable if the renal function is stable. CREATININE 1.36(H) 0.50 - 0.90 mg/dL 01/10/2024 10:38 PM CDT [facility] Blood BLOOD SPECIMEN / Unknown Butterfly / Unknown 01/10/2024 10:17 AM CDT 01/10/2024 10:19 AM CDT [facility] CHEMISTRY Performing Organization Address [facility] Co de Phone Number [facility] [address] [place] [address], * PATH BREAST CORE BIOPSY (01/02/2024 9:45 AM CDT) Case Report Pathology Report ?Case: [id number] ? Authorizing Provider: ??Unknown, Doctor ?Collected: ? 01/02/2024 0945 ? Ordering Location: ? [facility] ?Received: ?01/03/2024 0811 ? Pathologist: ? Sugar Cloud, ? MD ? Specimens: ?? A) - Right Breast Core Ultrasound Biopsy ? B) - Right Axilla ? 02/16/2024 5:11 PM CDT [facility] Amendment 01/05/2024 - Amendment issued to incorporate ancillary studies. 01/09/2024 - Amendment issued to incorporate ancillary HER2 FISH studies. 01/30/2024 - This amendment is issued to change the diagnosis from Invasive Ductal Carcinoma to Invasive Lobular Carcinoma after review and e-cadherin staining of the excision specimen ([id number]). The remainder of the diagnosis is unchanged. 02/16/2024 - The tissue was submitted to [employer] for Oncotype DX for Breast Cancer testing. Please see attached scanned report. 02/16/2024 5:11 PM CDT [facility] Final Diagnosis A) RIGHT BREAST, 6:00, 7 CM FROM NIPPLE, ULTRASOUND-GUIDED CORE BIOPSY: 1. Invasive lobular carcinoma, measuring 6 mm in core biopsy ?? a. Tristen grade: I of III; Tristen score: 5 of 9 ?? b. Angio-lymphatic invasion: Absent ?? c. Associated LCIS: Present, solid type 2. Breast Ancillary Testing: ?a. Hormone Receptors: [...] Negative for metastatic carcinoma in this sampling 02/16/2024 5:11 PM T [facility] Amendment electronically signed by Sugar Cloud MD on 02/16/2024 at 5:11 PM Amendment electronically signed by Vivien Richardson MD on 01/30/2024 at 11:17 AM Amendment electronically signed by Curt Parker MD on 01/09/2024 at 4:52 PM Amendment electronically signed by Sugar Cloud MD on 01/05/2024 at 11:44 AM Comment A, B) These are image-guided breast biopsies. The pathologic findings should be correlated with radiologic and clinical findings prior to treatment decisions. Case seen in consultation with Dr. Richardson 02/16/2024 5:11 PM CDT [facility] Clinical Information SITE A: INDICATION: Right breast mass Lesion description: Irregular indistinct hypoechoic mass Dimensions: 8 x 7 x 7 mm Location: Right breast, 6:00, 7 cm from nipple SITE B: INDICATION: Right axillary lymph node with mild cortical thickening Lesion description: Oval circumscribed and solid Dimensions: 2.3 x 0.6 x 1 cm Location: Right axillary lymph node 02/16/2024 5:11 PM CDT [facility] Gross Description A) Label: ??Patient's name [...] not longer than 72 hours. TRS 01/03/2024. 02/16/2024 5:11 PM CDT [facility] ENTRAL LABORATORY Microscopic Description The final diagnosis is based on microscopic examination of appropriate sections of all specimens. A) The presence of black ink is confirmed on tissue sections. B) The presence of blue ink is confirmed on tissue sections. 02/16/2024 5:11 PM CDT [facility] Cytogenetics Summary Cytogenetic testing has been ordered and will be reported separately. 02/16/2024 5:11 PM [facility] SYNOPTIC REPORTING Breast Biomarker Reporting Template BREAST: [...] NUCLEI ANALYZED FOR KI67. The FDA approved [employer] PathVysion DNA Probe Kit was developed and its performance characteristics determined by [employer]. ??This test incorporates minor modifications to protocol and validated by the [facility] and [facility] to yield equivocal or superior performance. This FISH test uses a multiplex probe stain procedure. 02/16/2024 5:11 PM CDT [facility]-C ENTRAL LABORATORY Additional Information Interpreted at [facility] Laboratory, Central Laboratory - [address] [facility] [address], [place] [address] Patients with breast cancers that are HER2 [...] results do not result in eligibility currently). 02/16/2024 5:11 PM CDT [facility] Other (Right Breast Core Ultrasound Biopsy) 01/02/2024 9:45 AM CDT 01/03/2024 8:11 AM CDT Specimen (specimen) (Right Axilla) 01/02/2024 9:48 AM CDT 01/03/2024 8:11 AM CDT Doctor Unknown PATHOLOGY/CYTOLOGY Performing Organization Address [facility] Co de Phone Number [facility] [address] [place] [address], * CG HER2 BREAST (01/02/2024 9:45 AM CDT) Other (Right Breast Core Ultrasound Biopsy) 01/02/2024 9:45 AM CDT 01/05/2024 11:44 AM CDT Doctor Unknown LABORATORY Performing Organization Address City/[facility]/ZIP Co de Phone Number [facility] [address] [place] [address], [place] * CYTOGENETICS MALIGNANT TISSUE STUDIES (01/02/2024 9:45 AM CDT) RFR Breast cancer 01/09/2024 1:01 PM CDT [facility] TEST & RESULT SUMMARY HER2 FISH Breast: See pathology report [id number]. See comments. 01/09/2024 1:01 PM CDT [facility] _ 01/09/2024 1:01 PM CDT [facility] COMMENTS This record is used as an internal laboratory test designed for workflow purposes only. 01/09/2024 1:01 PM CDT [facility] SOURCE Right Breast Core Ultrasound Biopsy (Paraffin Slides A1 2 uns) [id number] 01/09/2024 1:01 PM CDT [facility] NTRAL LABORATORY Other (Right Breast Core Ultrasound Biopsy) 01/02/2024 9:45 AM CDT 01/05/2024 11:44 AM CDT Doctor Unknown LABORATORY [facility]-CEN[facility]AL LABORATORY [address] [place] [address], [place] * US BIOPSY LYMPH NODE BREAST [...] provider. RIGHT BREAST ULTRASOUND, 12/19/2023 PLEASE SEE [id number] FOR DIGITAL RIGHT MAMMOGRAM SAME DAY. Rosario [...] possible mild thickening of the cortex. Rosario Faulkner DO MAMMO * XR MAMMO ADRIENNE [...] BASIC METABOLIC PANEL (12/15/2023 1:55 PM CDT) SODIUM 133(L) 136 - 145 mmol/L 12/15/2023 10:16 PM CDT [facility] POTASSIUM 5.0 3.5 - 5.1 mmol/L 12/15/2023 10:16 PM CDT [facility] TR[facility] CHLORIDE 97(L) 98 - 107 mmol/L 12/15/2023 10:16 PM CDT [facility] CO2,TOTAL 24 22 - 29 mmol/L 12/15/2023 10:16 PM CDT [facility] ANION GAP 12 5 - 18 12/15/2023 10:16 PM CDT [facility] GLUCOSE 84 70 - 99 mg/dL 12/15/2023 10:16 PM CDT [facility] CALCIUM 9.3 8.8 - 10.2 mg/dL 12/15/2023 10:16 PM CDT [facility] BUN 22 8 - 23 mg/dL 12/15/2023 10:16 PM CDT [facility] CREATININE 1.20(H) 0.50 - 0.90 mg/dL 12/15/2023 10:16 PM CDT [facility] BUN/CREAT RATIO 18 10 - 20 10:16 PM CDT [facility] eGFR 47(L) >90 mL/min/1.7 3m2 12/15/2023 10:16 PM CDT [facility] Comment:As of 2021, eG FR [...] 1:55 PM CDT Rosario Faulkner DO [facility] [address] [place] [address], * XR DXA BONE DENSITY 2 SITES [...] recommended in 3-5 years. Farzana Isabel PA-C [facility] 06/29/2021 Narrative 06/29/2021 1:05 PM CDT For Patients: Results are automatically released to your [facility] ([facility]) account once available, in compliance with federal regulations. This means that you may see your results before your provider has had a chance to review them. Please allow 2-3 business days for your provider to comment on the results. XR DXA Bone Mineral Density (BMD) EXAM LOCATION: [address] [address] PATIENT NAME: Iram Napier DATE OF : [...] two scanners are made by the same senior it project manager. PROCEDURE: Dual-energy x-ray absorptiometry performed with routine [...] adequate candidate for conscious sedation. The [id number] was passed through the anus and advanced [...] reponse to care. [facility] and nursing notes for moderate sedation details. Total physician intraservice time was 25 minutes. Mark Abreu MD 03/17/2020 9:23:04 AM This report has been signed electronically. Note Initiated On: 03/17/2020 8:03 AM Procedure Code(s): --- Professional --- 90539, Colonoscopy, flexible; diagnostic, including collection of specimen(s) bybrushing or washing, when performed (separateprocedure) Diagnosis Code(s): --- Professional --- Z83.71, Family history of colonic polyps CPT copyright 2019 [employer]. All rights reserved. The codes documented in this report are preliminary and upon streetcar motorman reviewmay be revised to meet current compliance requirements. Scope In: 8:48:31 AM Scope Withdrawal Time 0 hours 6 minutes 49 seconds Scope Out: 9:09:04 AM Mark Abreu MD PROCEDURE ORD * ANTI HCV (11/06/2019 2:08 PM LEAD CYTOGENETIC TECHNOLOGIST) HEPATITIS C ANTIBODY Non-React jose carlos Non-React jose carlos 11/07/2019 12:35 AM LEAD CYTOGENETIC TECHNOLOGIST [facility] Comment:Antibodies to HCV no t detected; does not exclude the possibility of exposure to HCV. Blood BLOOD SPECIMEN / Unknown Butterfly / Unknown 11/06/2019 2:08 PM LEAD CYTOGENETIC TECHNOLOGIST 11/06/2019 2:08 PM LEAD CYTOGENETIC TECHNOLOGIST Lee Ann Delcid MD SEND OUTS [facility] [address] [place] [address], [place] from Last 3 Months or Most Recently Relevant to Health Maintenance Advance Directives * Full Code (Latest Code Status on File) Date Activated Date Inactivated Comments 11/07/2022 11:08 AM 11/07/2022 4:14 PM Question Answer Comments Code Status Discussion: Unable to Assess Preferences, Provider to review later Care Teams Welder Production Line Arc Relationship Specialty Start Date End Date Rosario Faulkner DO [address] [place] [address] PCP - General Family Practice 02/21/23
--- NOTE | 2024-02-22 08:15 | CRLHL7_ITS ---
For Patients: As a result of the Century Cures Act, medical imaging exams and procedure reports are released immediately into your electronic medical record. You may view this report before your referring provider. If you have questions, please contact your health care provider. INDICATION: 78-year-old female. 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 No sentinel lymph node removal. Evaluate right axillary lymph nodes. TECHNIQUE: Directed right axillary ultrasound with this radiologist present. FINDINGS: There is a dominant right axillary lymph node measuring 2.4 x 0.8 x 1.4 cm with a renal cortex of nearly 0.3 cm in thickness. There is a biopsy clip. This was biopsied and reportedly was benign. There are two additional right axillary lymph nodes, one of which measures 1.3 x 0.8 x 1.1 cm with a cortex of 0.5 cm. There is a third lymph node measuring 1.7 x 0.6 x 1.2 cm with a renal cortex of 0.6 cm. The mildly prominent cortex of these lymph nodes is nonspecific and could be reactive. The lymph nodes do maintain a normal reniform shape with an echogenic hilus and normal blood flow. Consider follow-up ultrasound within 6 months to assess for stability of these lymph nodes. These findings were discussed in detail with the patient. IMPRESSION: Three right axillary lymph nodes, one of which contains a biopsy clip. The largest lymph node measuring up to 2.4 cm was biopsied and proven to be benign. The other two lymph nodes may reflect some reactive change with slightly thickened lymph node cortices. Follow-up ultrasound recommended in 6 months. BI-RADS Category 3: Probably Benign Rush Uriarte M.D. Diagnostic/Nuclear Medicine Radiologist [email or web address] Transcribed: 10:53 am DW/Dictated by: Rush Uriarte MD @ 02/22/2024 9:28:00 AM (Electronically Signed)
== END 2024-02-22 08:11 | disposition home or self-care (01) ==
LOC: US 08:10
PROVIDERS: PCP Family Medicine; Visit Provider Internal Medicine Hematology & Oncology
DX: R59.0 Localized enlarged lymph nodes (principal); C50.919 Malignant neoplasm of unspecified site of unspecified female breast
CPT/HCPCS: 76882

== ENCOUNTER 2024-03-17 09:42 | Outpatient (CLI) | payer MEDICARE, OTHER, SELFPAY ==
--- OUTSIDE RECORDS SUMMARY | 2024-03-18 03:57 | XMS_ITS | Continuity of Care Document ---
Author Organization [facility] Address [address] [address] [place] [address] Phone Care Team Providers Care Nuclear Cardiology Technologist Name Role Phone Julia Manuel MD Unavailable Unavaila ble Allergies, Adverse Reactions, Alerts Substance Reaction Status Criticality No Known Allergies Active No Inform ation Medications Medication Instructions Dosage Effective Dates (start - stop) Status Comments ciprofloxacin 250 mg tablet take 1 tablet by oral route every 12 hours 250 MG - Active aspirin 81 mg tablet,delayed release take 1 tablet by oral route every day 81 MG - Active atorvastatin 80 mg tablet take 1 tablet by oral route every day 80 MG - Active Diprolene (augmented) 0.05 % topical ointment apply by topical route every day to the affected area(s) ; do not exceed 45 grams per week. 0.00 - Active carvedilol 6.25 mg tablet take 1 tablet by oral route 2 times every day with food 6.25 MG - Active fluticasone propionate 50 mcg/actuation nasal spray,suspension spray 2 spray by Intranasal route every day in each nostril 2 spray - Active hydrochlorothiazide 25 mg tablet take 1 tablet by oral route every day 25 MG - Active latanoprost 0.005 % eye drops instill 1 drop by ophthalmic route every day into affected eye(s) in the evening 1.00 drop - Active levothyroxine 112 mcg capsule take 1 capsule by oral route every day 112 MCG - Active lisinopril 5 mg tablet take 1 tablet by oral route every day 5 MG - Active lorazepam 0.5 mg tablet take 2 tablet by oral route 3 times every day as needed 1 MG - Active montelukast 10 mg tablet take 1 tablet b y oral route every day in the evening 10 MG - Active nitroglycerin 0.[address] 1 tablet by Sublingual route every 5 minutes as needed, up to three per episode as needed 0.4 MG - Active Vitamin D3 25 mcg (1,000 unit) capsule take 1 Capsule by Oral route every day 1 Capsule - Active CALCIUM (unknown strength) take 2 capsule by oral route every day Not Available - Active vitamin B complex tablet take 1 by Oral route every day 1 - Active Procedures Procedure Date Ugi Endo; W/us Guid Asp/bx Office Cons New/estab Mod Advance Directives Directive Yes / No Effective Date File Name No Information Encounters Encounter Description Practice Location Reason(s) For Visit Diagnoses Date Provider Providers Copied on Encounter [facility], [address] [address], [place], [place], [id number], [place] tel:[phone] [facility] Pancreas cyst 3 Kaleb Solano [address] [facility] [address], [place], [place], [id number] , [place]. tel:[phone] [facility], [address] [address], [place], [place], [address], [place] tel:[phone] [facility] Pancreas cyst 3 Kaleb Solano [address], [place], [place], [address] , [place]. tel:[phone] [facility], [address] [address], [place], [place], [address], [place] tel:[phone] [facility] No Information [address] Kaleb Solano [address] [facility], [address], [place], [place], [address] , [place]. tel:[phone] Referring Provider: Julia Manuel MD, [address], [place], [address] . tel:[phone] Office Cons New/estab Mod [facility], [address] [address], [place], [place], [address], [place] [phone] [facility] GI Symptoms or Concerns (chief complaint) Pancreas cyst 3 Kaleb Day. [address], [place], [place], [address] , [place]. tel:[phone] [facility], [address] [address], [place], [place], [address], [place] tel:[phone] [facility] No Information 3 Gurinder Ochoa. [address] [facility], [address], [place], [place], [address] , [place]. tel:[phone] Family History Family Member Type Diagnosis Age At Onset Brother Problem (finding) Asthma Immunizations Vaccine Date Status Comments SARS-COV-2 (COVID-19) vaccin e, mRNA, spike protein, LNP, bivalent booster, preservative free, 50 mcg/0.5 mL or 25 mcg/0.25 mL dose administered Note: [facility] bi-direct ional interface ; Source: Other Registry influenza, high-dose seasona l, quadrivalent, .7mL dose, preservative free administered Note: [facility] bi-direct ional interface ; Source: Other Registry SARS-COV-2 (COVID-19) vaccin e, mRNA, spike protein, LNP, preservative free, 100 mcg/0.5mL dose or 50 mcg/0.25mL dose administered Note: [facility] bi -directional interface ; Source: Other Registry SARS-COV-2 (COVID-19) vaccin e, mRNA, spike protein, LNP, preservative free, 100 mcg/0.5mL dose or 50 mcg/0.25mL dose administered Note: [facility] bi -directional interface ; Source: Other Registry influenza, seasonal vaccine, quadrivalent, adjuvanted, .5mL dose, preservative free administered Note: [facility] bi-di rectional interface ; Source: Other Registry SARS-COV-2 (COVID-19) vaccin e, mRNA, spike protein, LNP, preservative free, 100 mcg/0.5mL dose or 50 mcg/0.25mL dose administered Note: [facility] bi -directional interface ; Source: Other Registry SARS-COV-2 (COVID-19) vaccin e, mRNA, spike protein, LNP, preservative free, 100 mcg/0.5mL dose or 50 mcg/0.25mL dose administered Note: [facility] bi -directional interface ; Source: Other Registry zoster vaccine recombinant administered N ote: [facility] bi-directional interface ; Source: Other Registry zoster vaccine recombinant administered N ote: [facility] bi-directional interface ; Source: Other Registry Seasonal trivalent influenza vaccine, adjuvanted, preservative free administered Note: [facility] bi-direct ional interface ; Source: Other Registry tetanus toxoid, reduced diphtheria toxoid, and acellular pertussis vaccine, adsorbed administered Note: [facility] b i-directional interface ; Source: Other Registry influenza, high dose seasona l, preservative-free administered Note: [facility] bi-direct ional interface ; Source: Other Registry Seasonal trivalent influenza vaccine, adjuvanted, preservative free administered Note: [facility] bi-direct ional interface ; Source: Other Registry influenza, high dose seasona l, preservative-free administered Note: [facility] bi-direct ional interface ; Source: Other Registry influenza, high dose seasona l, preservative-free administered Note: [facility] bi-direct ional interface ; Source: Other Registry Prevnar 13 administered Note: [facility] bi-d irectional interface ; Source: Other Registry influenza, high dose seasona l, preservative-free administered Note: [facility] bi-direct ional interface ; Source: Other Registry Pneumovax 23 administered Note: [facility] bi-d irectional interface ; Source: Other Registry influenza, high dose seasona l, preservative-free administered Note: [facility] bi-direct ional interface ; Source: Other Registry zoster vaccine, live administered Note: [facility] bi-directional interface ; Source: Other Registry Influenza, seasonal, injectable administe red Note: [facility] bi- directional interface ; Source: Other Registry Influenza, seasonal, injecta ble, preservative free administered Note: [facility] bi-direct ional interface ; Source: Other Registry Influenza, seasonal, injecta ble, preservative free administered Note: [facility] bi-direct ional interface ; Source: Other Registry Influenza, seasonal, injectable administe red Note: [facility] bi- directional interface ; Source: Other Registry Pneumovax 23 administered Note: [facility] bi-d irectional interface ; Source: Other Registry Influenza, seasonal, injectable administe red Note: [facility] bi- directional interface ; Source: Other Registry Influenza, seasonal, injectable administe red Note: [facility] bi- directional interface ; Source: Other Registry tetanus toxoid, reduced diphtheria toxoid, and acellular pertussis vaccine, adsorbed administered Note: [facility] b i-directional interface ; Source: Other Registry Influenza, seasonal, injectable administe red Note: [facility] bi- directional interface ; Source: Other Registry Influenza, seasonal, injectable administe red Note: [facility] bi- directional interface ; Source: Other Registry Payers Payer name Insurance type Covered constitution party ID Authoriza tion(s) [employer] [id number] Social History Type Description Quantity Date Captured Comments Alcohol Use Details Unknown Caffeine Use Details Unknown Tobacco Use Status No Information Smoking Status No Information Sex Female Chief Complaint And Reason For Visit No Information Reason For Referral Reason For Referral No Information Plan Of Treatment Date Type Action Status Referral Ordered: MRI Pancreas WITH Contrast Appointment date/timeframe: 04/24/2023 ordered Vivek-[id number] Referral Ordered: EUS Appointment date/timeframe: 11/07/2022 ordered History Of Present Illness Encounter Date Complaint History Of Prese nt Illness GI Symptoms or Concerns Iram Napier is a present at 77-year-old female with whom I had consultation at the request of primary care provider Dr. Lee Ann Delcid for discussion of a pancreatic cyst. She has a history of coronary artery disease with history of coronary stenting, dyslipidemia, hypertension, hypothyroidism, environmental allergies, mild anemia, and pancreas cyst. She has known about her pancreas cyst for a number of years since at least 2017. It is slowly increasing in size. I was able to review her outside records. Most recently she had an MRI done on October 03, 2022. 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 Current measures 2.4 x 1.9 cm. In February 2020 it was 21 x 15 mm. In 2018 is 12 x 13 mm. There is no thickening or enhanced wall, no mural nodule. Pancreatic duct is normal.The patient has a hiatal hernia and occasionally has acid reflux, but currently that is not problematic for her and she takes no medications for acid reflux. Overall, she feels well. She denies any fevers, chills, nausea, vomiting, abdominal pain, diarrhea, constipation, unexplained weight loss, change in appetite, blood in her stool, or jaundice. Functional Status Date Functional Assessmen t No Information Instructions Date Instruction Additional Infor kvng 1. Schedule endoscop ic ultrasound.2. Would probably decrease the interval of imaging of the cyst in the short run to try to determine how facet cyst is changing.Thank you for allowing me to participate in the care of your patient. Please feel free to call with any questions or concerns. Related to Pancreas cyst Assessments Type Assessment Date assessment Pancreas cyst Patient Care Teams Name Effective Dates (start - stop) Status Members No Information
--- OUTSIDE RECORDS SUMMARY | 2024-03-18 03:57 | XMS_ITS ---
Author Organization [facility] Address [address] [place] [address] Care Team Providers Care Casting Machine Service Operator Name Role Phone Unavailable Unavailable Unavailable Surgery Details Not on file Complications Check Surgery Details section. Procedure Estimated Blood Loss Check Surgery Details section. Procedure Findings Check Surgery Details section. Procedure Specimens Taken Check Surgery Details section.
--- OUTSIDE RECORDS SUMMARY | 2024-03-18 03:57 | XMS_ITS | Clinical Summary ---
Author Organization [facility] Address [address] [place] [address] Care Team Providers Care Trim Technician Name Role Phone Unavailable Primary Care Provider Unavailabl e Source Comments Patient records contain information from all sites at [facility]. For routine questions regarding patient records, call [phone] during business hours, M-F 8:00 AM - 5:00 PM Central Time. Record requests for emergency care only can be directed to [phone] at any time.[facility] Allergies No known active allergies Medications Medication Sig Dispensed Refills Start Date End Date Status aspirin [address] tablet Take 1 tablet by mouth daily. 07/05/2007 Active atorvastatin (Lipitor) 80 mg tablet Take 1 tablet by mouth at bedtime. 10/20/2023 Active betamethasone dipropionate 0.05 % cream Apply topically. 03/31/2023 Active carvediloL (Coreg) 6.25 mg tablet Take 1 tablet by mouth 2 (two) times a day with meals. 01/16/2024 Active cholecalciferol, vitamin D3, 25 mcg (1,000 Unit) tablet Take 1,000 Units by mouth daily. Active hydroCHLOROthiazide (HydroDiuril) 25 mg tablet Take 1 tablet by mouth daily. 02/22/2023 Active fluticasone propionate (Flonase) 50 mcg/actuation nasal spray Administer 2 sprays into nostril(s) daily. 10/20/2023 Active ketoconazole (Nizoral) 2 % cream Apply to affected area on nose, face twice daily as needed for scaling 12/28/2023 Active latanoprost (Xalatan) 0.005 % ophthalmic solution INSTILL 1 DROP RIGHT EYE AT BEDTIME 12/15/2021 Active levothyroxine 112 mcg tablet Take 112 mcg by mouth. 10/20/2023 Active lisinopriL 10 mg tablet Take 10 mg by mouth daily. Active montelukast (Singulair) 10 mg tablet Take 1 tablet by mouth at bedtime. 10/20/2023 Active timolol (Timoptic) 0.5 % ophthalmic solution Administer 1 drop into affected eye(s) daily. 10/10/2023 Active calcium carbonate 1,250 mg (500 mg calcium) chewable tablet Chew 500 mg of calcium daily with breakfast. Active B complex-vitamins (Balanced B-50) tablet Take 1 tablet by mouth daily. Active cetirizine (ZyrTEC) 5 mg tablet Take 5 mg by mouth daily. Active mometasone (Elocon) 0.1 % cream Apply 1 Application topically daily. Apply to skin within the treatment field. 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 03/11/2024 10:11 AM CDT - 03/11/2024 4:01 PM CDT Hospital Encounter Department of Radiation Oncology in [address] [phone] Bernie Joseph M.D. 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 03/08/2024 10:25 AM CDT Hospital Encounter Department of Radiation Oncology in [address] [address] Bernie Joseph M.D. 03/07/2024 10:21 AM CDT Hospital Encounter Department of Radiation Oncology in [address] [phone] Bernie Joseph M.D. 03/06/2024 11:12 AM CDT Hospital Encounter Department of Radiation Oncology in [address] [phone] Bernie Joseph M.D. 02/28/2024 2:00 PM CDT - 02/28/2024 5:13 PM CDT Hospital Encounter Department of Radiation Oncology in [address] [address] Bernie Joseph M.D. 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 (HCC) (Primary Dx) from Last 3 Months Family History Medical History Relation Name Comments Prostate cancer Brother Relation Name Status Comments Brother Social History Tobacco Use Types Packs/Day Years Used Date Smoking Tobacco: Former Cigarettes 30 1 974 - 2004 Smokeless Tobacco: Never Tobacco Cessation:Counseling Given: Not Answered Alcohol Use Standard Drinks/Week Comments Yes 0 (1 standard drink = 0.6 oz pur e alcohol) Occasional Dental Answer Date Recorded Dental: Regular Dentist Unknown 02/06/20 Sex and Gender Information Value Date Recorded Sex Assigned at Not on file Gender Identity Not on file Sexual Orientation Not on file Last Filed Vital Signs Vital Sign Reading Time Taken Comments Blood Pressure 182/71 02/28/2024 12:55 PM CDT Pulse 64 02/28/2024 12:55 PM CDT Temperature 36.1 ??C (96.9 ??F) 03/11/2024 1 0:53 AM CDT Respiratory Rate - - Oxygen Saturation - - Inhaled Oxygen Concentration - - Weight 77.1 kg (169 lb 15.6 oz) 024 10:53 AM CDT Height - - Body Mass Index - - Plan of Treatment Health Maintenance Due Date Last Done Comments Hepatitis C Screening 1945 COVID-19 Vaccine ( season) 2023 07/26/2022, 02/06/2022, 07/13/2021, Additional history exists Depression Screening (Annual PHQ-2) 09/11/2023 Fall Risk Screen (Annual) 09/11/2023 Influenza Vaccine (#1) 2024 , 05/11/2022, 05/24/2021, Additional history exists Sodium Level 12/14/2024 12/15/2023, 03/0 04/2024, 10/20/2023, Additional history exists Creatinine Level (Kidney Function Test) 01/09/2025 01/10/2024, 12/15/2023, 11/17/2023, Additional history exists Potassium Level 01/09/2025 01/10/2024, 04/0 01/2024, 11/17/2023, Additional history exists Thyroid Stimulating Hormone (TSH) test for thyroid function 01/09/2025 01/10/2024, 10/20/2023, 09/19/2022, Additional history exists DTaP,Tdap,and Td Vaccines (3 - Td or Tdap) 12/07/2028 12/07/2018, 12/18/2006 Pneumococcal vaccine (65+ years) Completed 03/16/2015, 06/16/2014, 06/10/2009 Zoster Vaccines Completed 04/20/2020, 09/11, 10/05/2012 HPV Vaccines Aged Out No longer eligi ble based on patient's age to complete this topic Procedures Procedure Name Priority Date/Time Associated Diagnosis Comments ARIA DAILY TREATMENT INFORMATION Routine 03/12/2024 10:51 AM CDT ARIA DAILY TREATMENT INFORMATION Routine 03/11/2024 10:40 AM CDT ARIA DAILY TREATMENT INFORMATION Routine 03/08/2024 10:38 AM CDT ARIA DAILY TREATMENT INFORMATION Routine 03/07/2024 10:38 AM CDT ARIA DAILY TREATMENT INFORMATION Routine 03/06/2024 11:39 AM CDT ARIA COURSE COMPLETE TREATMENT INFORMATION Routine 03/05/2024 10:31 AM CDT ARIA COURSE COMPLETE TREATMENT INFORMATION Routine 03/04/2024 2:00 PM CDT INITIAL RAD ONC TREATMENT PLANNING CT SIMULATION Routine 02/28/2024 2:00 PM CDT 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 (HCC) OUTSIDE MG MAMMOGRAM Routine 01/25/2024 12:40 PM CDT OUTSIDE MG MAMMOGRAM Routine 01/25/2024 11:35 AM CDT OUTSIDE US BREAST Routine 01/25/2024 11: 05 AM CDT EXTI THYROID-STIMULATING HORMONE-SENSITIVE (S-TSH), S Routine 01/10/2024 10:17 AM CDT EXTI POTASSIUM, S/P Routine 01/10/2024 1 0:17 AM CDT EXTI CREATININE WITH EGFR, S/P Routine 01/10/2024 10:17 AM CDT OUTSIDE MG MAMMOGRAM Routine 01/02/2024 10:05 AM CDT OUTSIDE US BREAST Routine 01/02/2024 9:3 0 AM CDT OUTSIDE US Routine 01/02/2024 9:25 AM CDT OUTSIDE MG MAMMOGRAM Routine 12/19/2023 2:50 PM CDT OUTSIDE US BREAST Routine 12/19/2023 2:5 0 PM CDT EXTI BASIC METABOLIC PANEL, S/P Routine 12/15/2023 1:55 PM CDT from Last 3 Months or Most Recently Relevant to Health Maintenance Results * Aria Daily Treatment Information (03/12/2024 10:51 AM CDT) Only the most recent of5 resultswithin the time period is included. Course ID [email or web address] SAMSON ARIA Course Start Date 4 11:18 CDT SAMSON ARIA First Treatment Date 4 11:37 CDT SAMSON ARIA Last Treatment Date 4 10:51 CDT SAMSON ARIA Treatment Elapsed Days 6 SAMSON ARIA Reference Point [id number] SAMSON ARIA Dosage Given to Date cGy 2600 SAMSON ARIA Session Dosage Given 520 SAMSON ARIA Plan ID [id number] SAMSON ARIA Fractions Treated to Date 5 SAMSON ARIA Planned Total Fractions 5 SAMSON ARIA Prescribed Dose Per Fraction 520 SAMSON ARIA Prescription Dose in cGy 2600 SAMSON ARIA Plan Primary Reference Point [id number] SAMSON ARIA 03/12/2024 10:5 1 AM CDT Provider Not In System RADIATION ONCOLOG Y ORDERABLES SAMSON AMIRA na * Aria Course Complete Treatment Information (03/05/2024 10:31 AM CDT) Only the most recent of2 resultswithin the time period is included. Course ID OutsideRec SAMSON ARIA Course Start Date 02/27/2024 08:21 CDT SAMSON ARIA Course End Date 03/05/2024 10:31 CDT SAMSON ARIA Reference Point dpvTemp SAMSON ARIA Dosage Given to Date cGy 0 SAMSON ARIA Plan ID Outsd [id number] SAMSON ARIA Fractions Treated to Date 0 SAMSON ARIA Planned Total Fractions 13 SAMSON ARIA Prescribed Dose Per Fraction 180 SAMSON ARIA Prescription Dose in cGy 2340 SAMSON ARIA Plan Primary Reference Point dpvTemp SAMSON ARIA Plan ID Outsd [id number] SAMSON ARIA Fractions Treated to Date 0 SAMSON ARIA Planned Total Fractions 13 SAMSON ARIA Prescribed Dose Per Fraction 180 SAMSON ARIA Prescription Dose in cGy 2340 SAMSON ARIA Plan Primary Reference Point dpvTemp SAMSON ARIA Plan ID Outsd BrstLe SAMSON ARIA Fractions Treated to Date 0 SAMSON ARIA Planned Total Fractions 7 SAMSON ARIA Prescribed Dose Per Fraction 200 SAMSON ARIA Prescription Dose in cGy 1400 SAMSON ARIA Plan Primary Reference Point dpvTemp SAMSON ARIA 03/05/2024 10:3 1 AM CDT Provider Not In System RADIATION ONCOLOG Y ORDERABLES Performing Organization Address [facility]/[place] de Phone Number CHAPIN COLLIER na * Initial Rad Onc Treatment Planning CT Simulation (02/28/2024 2:00 PM CDT) Narrative [facility] - 02/28/2024 2:00 PM CDT Morenita Prado, RTT ? 02/28/2024 ??2:31 PM Initial Rad Onc Treatment Planning CT Simulation Performed by: Bernie Joseph M.D. Authorized by: Bernie Joseph M.D. ?? Bernie Joseph M.D. RADIATION ONCOLOG Y ORDERABLES Performing Organization Address [facility] de Phone Number CHAPIN COLLIER na * MM surgical specimen RT-Outside Mammogram (01/25/2024 12:40 PM CDT) Only the most recent of4 resultswithin the time period is included. Narrative [facility] - 02/13/2024 9:14 AM CDT This order has been created and auto-finalized to support the import of outside images. If available, original interpretation can be found on the Media Tab in Chart Review, in Document Viewer, or as an image in QREADS. If a re-interpretation or overread is required please follow defined workflow. ?? Provider Not In System IMG BI PROCEDURES Performing Organization Address [facility]/ZIP Co de Phone Number [facility] NA * US BREAST NEEDLE LOC RT-Outside US Breast (01/25/2024 11:05 AM CDT) Only the most recent of3 resultswithin the time period is included. Narrative [facility] - 02/13/2024 9:14 AM CDT This order has been created and auto-finalized to support the import of outside images. If available, original interpretation can be found on the Media Tab in Chart Review, in Document Viewer, or as an image in QREADS. If a re-interpretation or overread is required please follow defined workflow. ?? Provider Not In System IMG BI PROCEDURES Performing Organization Address [facility]/[place] de Phone Number II NA * US biopsy lymph axillary-Outside US (01/02/2024 9:25 AM CDT) Narrative [facility] - 02/13/2024 9:14 AM CDT This order has been created and auto-finalized to support the import of outside images. If available, original interpretation can be found on the Media Tab in Chart Review, in Document Viewer, or as an image in QREADS. If a re-interpretation or overread is required please follow defined workflow. ?? Provider Not In System IMG US PROCEDURES Performing Organization Address [facility]/[place] de Phone Number [facility] NA from Last 3 Months or Most Recently Relevant to Health Maintenance
--- OUTSIDE RECORDS SUMMARY | 2024-03-18 03:57 | XMS_ITS | Encounter Summary ---
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 [address] [place] [phone] [facility] Region Referral ID Status Reason Start Date Expiration Date V isits Requested Visits Authorized [id number] Authorized 02/13/2024 02/12/2025 10 10 Encounter Details Date Type Department Care Team (Latest Contact Info) Description 03/11/2024 10:11 AM CDT - 03/11/2024 4:01 PM CDT Hospital Encounter Department of Radiation Oncology in [place], [place] [address] [place] [address] Bernie Joseph M.D. 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F) 03/11/2024 1 0:53 AM CDT Respiratory Rate - - Oxygen Saturation - - Inhaled Oxygen Concentration - - Weight 77.1 kg (169 lb 15.6 oz) 024 10:53 AM CDT Height - - Body Mass Index - - documented in this encounter Medications at Time of Discharge Medication Sig Dispensed Refills Start Date End Date aspirin [address] tablet Take 1 tablet by mouth daily. 07/05/2007 atorvastatin (Lipitor) 80 mg tablet Take 1 tablet by mouth at bedtime. 10/20/2023 B complex-vitamins (Balanced B-50) tablet Take 1 tablet by mouth daily. betamethasone dipropionate 0.05 % cream Apply topically. 03/31/2023 calcium carbonate 1,250 mg (500 mg calcium) chewable tablet Chew 500 mg of calcium daily with breakfast. carvediloL (Coreg) 6.25 mg tablet Take 1 tablet by mouth 2 (two) times a day with meals. 01/16/2024 cetirizine (ZyrTEC) 5 mg tablet Take 5 mg by mouth daily. cholecalciferol, vitamin D3, 25 mcg (1,000 Unit) tablet Take 1,000 Units by mouth daily. fluticasone propionate (Flonase) 50 mcg/actuation nasal spray Administer 2 sprays into nostril(s) daily. 10/20/2023 hydroCHLOROthiazide (HydroDiuril) 25 mg tablet Take 1 tablet by mouth daily. 02/22/2023 ketoconazole (Nizoral) 2 % cream Apply to affected area on nose, face twice daily as needed for scaling 12/28/2023 latanoprost (Xalatan) 0.005 % ophthalmic solution INSTILL 1 DROP RIGHT EYE AT BEDTIME 12/15/2021 levothyroxine 112 mcg tablet Take 112 mcg by mouth. 10/20/2023 lisinopriL 10 mg tablet Take 10 mg by mouth daily. montelukast (Singulair) 10 mg tablet Take 1 tablet by mouth at bedtime. 10/20/2023 timolol (Timoptic) 0.5 % ophthalmic solution Administer 1 drop into affected eye(s) daily. 10/10/2023 mometasone (Elocon) 0.1 % cream Apply 1 Application topically daily. Apply to skin within the treatment field. 45 g 02/28/2024 documented as of this encounter Progress Notes * Bernie Joseph M.D. - 03/11/2024 11:30 AM CDT ATTESTATION FOR MANAGEMENT VISIT I saw and evaluated the patient and participated in the [place] portions of the service as noted below.I reviewed the documentation of Ms. Prabha Adams RN and agree with the findings and plan. The patient appears well on exam. We will continue with radiation as planned and we anticipate that she willcomplete treatments this week. We anticipate that Ms. Iram Napier will complete radiation treatment as planned without interruptions. The course of treatment was tolerated well. The patient experienced toxicities of grade 1fatigue during radiation treatment. Follow-up will be with Dr. Gracia; she will see us in follow-up again as needed. Brenie Joseph M.D., 03/11/2024 SUBJECTIVE REASON FOR VISIT Evaluation for side effects while receiving radiation treatment for 1. 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 HISTORY OF PRESENT ILLNESS Ms. Iram Napier is a 78 y.o. female with left sided breast cancer treated with surgery, chemotherapy and comprehensive/regional radiation in 2007 who now has a right sided lobular cancer and presents to discuss radiation options. I have independently reviewed her imaging, operative and pathology reports. We have seen her prior radiation records which are paper records that show comprehensive arcadio radiation. Briefly, with the right sided cancer she underwent lumpectomy alone and was found to have a 9mm invasive lobular carcinoma, margins negative by 6mm, no LVSI, G1, ER+, MD/HER2 negative, Ki-67% of 5% and Oncotype DX= 18. Patient is now undergoing radiation therapy to the right breast cavity. Treatment Course: 1xBreast Plan ID Fractions Dose / Fraction (cGy) Dose Treated (cGy) Dose Planned (cGy) First Treatment Last Treatment Elapsed Days [id number] 2600 03/06/2024 03/11/2024 5 Course Summary 03/06/2024 03/11/2024 5 The patient was seen and examined today with Dr. Joseph. The patient reports fatigue as her only current symptom from radiation therapy. Patient is applyingmometasone ointment once a day to treatment field area. Patient is applying moisturizing lotion to treatment field area frequently everyday. OBJECTIVE Temp 36.1 ??C (Temporal) Wt 77.1 kg PHYSICAL EXAM General: Alert and oriented in no apparent distress. Skin: No skin changes noted to right breast. ASSESSMENT / PLAN #1 Stage IA (pT1b, cN0, cM0, G1, ER+, MD-, HER2-) invasive lobular carcinoma of the right breast s/p right breast lumpectomy on January 25, 2024 #2 Previous infiltrating ductal carcinoma of the left breast s/p left breast lumpectomy and left axillary dissection in December 2006 followed by adjuvant chemotherapy, Herceptin, and radiation therapy to the left breast and left supraclavicular region #3 Radiation therapy to right breast cavity initiated on March 06, 2024; anticipated date of completion is on March 12, 2024 The patient is tolerating radiation treatment well overall. Patient is to apply mometasone ointmentto treatment field area twice a day for the next 2 weeks and then stop. Patient is to continue moisturizing lotion for 2 weeks. Patient is to apply moisturizing lotion as needed after 2 weeks if dryness and/or pink toned skin is noted. If radiation related skin changes develop then it will likely ta ke 2-3 weeks to notice improvement. Patient is completing monthly self breast examinations. Dr. Rutledge will see patient in follow up in March 2024. We will keep Radiation Oncology follow up to an as needed basis. She will contact us with any questions or concerns. We will continue with radiation treatment as planned. Toxicities reviewed with Dr. Joseph today. Signed by: Prabha Adams R.N. 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
--- OUTSIDE RECORDS SUMMARY | 2024-03-18 03:57 | XMS_ITS | Encounter Summary ---
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 [address] [place] [address] [facility] Region Referral ID Status Reason Start Date Expiration Date Visits Re quested Visits Authorized [id number] Closed 02/13/2024 02/12/2025 1 1 Encounter Details Date Type Department Care Team (Latest Contact Info) Description 02/28/2024 2:00 PM CDT - 02/28/2024 5:13 PM CDT Hospital Encounter Department of Radiation Oncology in [place], [place] [address] [place] [address] Bernie Joseph M.D. 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) Social History Tobacco Use Types Packs/Day Years Used Date Smoking Tobacco: Former Cigarettes 30 1 974 - 2003 Smokeless Tobacco: Never Alcohol Use Standard Drinks/Week Comments Yes 0 (1 standard drink = 0.6 oz pur e alcohol) Occasional Dental Answer Date Recorded Dental: Regular Dentist Unknown 02/06/20 Sex and Gender Information Value Date Recorded Sex Assigned at Not on file Gender Identity Not on file Sexual Orientation Not on file documented as of this encounter Medications at Time of Discharge [...] g 02/28/2024 documented as of this encounter Procedure Notes * Morenita Prado Tonio, RTT - 02/28/2024 2:00 PM CDTAssociated Order(s): Initial Rad Onc Treatment Planning CT Simulation Pre-Procedure Diagnose(s): 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 Authorized by: Bernie Joseph M.D. Simulation was performed under physician supervision based on physician order in preparation for radiation therapy. Physician was immediately available to provide assistance and direction throughout the procedure. Written consent for treatment was completed or confirmed. The patient was appropriately identified and placed in the treatment position using the necessary immobilization to ensure a reproducible treatment position. Reference martinez were placed to facilitate marking of isocenter. Area scanned:Chest Contrast used for the simulation procedure: None Patient position: Head first supine and arms up Custom immobilization: Vac-alondra Motion management: None Bolus: No CT guidance: Following positioning of the patient, a series of slices was obtained to be utilized in treatment planning. CT images were transferred to the Eclipse treatment planning system, after a reference isocenter was determined and marked. Segmentation and treatment planning will take place prior to treatment delivery. Patient set up and imaging was appropriate and completed without incident. Pattern Finisher use:No Associated attestation - Bernie Joseph M.D. - 02/28/2024 5:12 PM CDT I was present during all critical and [place] portions of the procedure(s) and immediately available [facility] the entire duration. See note for details. 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 02/28/2024 ??2:31 PM Initial Rad Onc Treatment Planning CT Simulation Performed by: Bernie Joseph M.D. Authorized by: Bernie Joseph M.D. ?? Bernie Joseph M.D. 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
--- OUTSIDE RECORDS SUMMARY | 2024-03-18 03:57 | XMS_ITS | Encounter Summary ---
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 [address] [place] [phone] Social History Tobacco Use Types Packs/Day Years Used Date Smoking Tobacco: Former Cigarettes 1 30 1 974 - 2004 Smokeless Tobacco: Never Alcohol Use Standard Drinks/Week Comments Yes 0 (1 standard drink = 0.6 oz pur e alcohol) Occasional Dental Answer Date Recorded Dental: Regular Dentist Unknown 02/06/20 Sex and Gender Information Value Date Recorded Sex Assigned at Not on file Gender Identity Not on file Sexual Orientation Not on file documented as of this encounter Plan of Treatment Not on file documented as of this encounter Visit Diagnoses Not on filedocumented in this encounter
--- OUTSIDE RECORDS SUMMARY | 2024-03-18 03:57 | XMS_ITS | Encounter Summary ---
Author Organization [facility] Address [address] [place] [address] Care Team Providers Care Weather Teacher Name Role Phone Unavailable Primary Care Provider Unavailabl e Reason for Visit * Appointment Request (Routine) - Closed Specialty Diagnoses / Procedures Referred By Contac t Referred To Contact Radiation Oncology Diagnoses Malignant Neoplasm Of Breast Female Right (HCC) Val Watts M.D. [address] [place] [address] Referral ID Status Reason Start Date Expiration Date Visits Re quested Visits Authorized [id number] Closed 02/06/2024 02/05/2025 1 1 Encounter Details Date Type Department Care Team (Latest Contact Info) Description 02/28/2024 12:30 PM CDT - 02/28/2024 1:59 PM CDT Hospital Encounter Department of Radiation Oncology in [place], [place] [address] [place] [phone] Bernie Joseph M.D. [address] [place] [phone] 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 (HCC) (Primary Dx) Social History Tobacco Use Types Packs/Day Years [...] Pulse 64 02/28/2024 12:55 PM CDT Temperature 36.3 ??C (97.4 ??F) 02/28/2024 12:55 PM C DT Respiratory Rate - - Oxygen Saturation - - Inhaled Oxygen Concentration - - Weight 77.6 kg (171 lb 1.2 oz) 02/28/2024 12:55 PM CDT Height - - Body Mass Index [...] 1 drop into affected eye(s) daily. 10/10/2023 documented as of this encounter Consult Notes * Vee Ron P.A.-C., M.S. - 02/28/2024 1:00 PM CDT SUBJECTIVE REQUESTING PROVIDER Val Watts M.D. CHIEF COMPLAINT/REASON FOR CONSULT 1. 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 HISTORY OF PRESENT ILLNESS Ms. Iram Napier is a 78-year-old female with invasive lobular carcinoma of the right breast,who presents today for an opinion regarding the role of radiation therapy in the management of the patient's disease. Her oncologic history is as follows: Oncology History 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 (HCC) 12/15/2023 Critical Imaging Bilateral screening mammogram with tomosynthesis Impression: RIGHT breast asymmetry/mass. RECOMMENDATIONS: Additional mammographic views of the RIGHT breast including 3D spot compression CC/MLO. RIGHT breast ultrasound may also be required. BI-RADS Category 0: Incomplete: Need Additional Imaging Evaluation and/or Prior Mammograms for Comparison 12/19/2023 Critical Imaging Right breast diagnostic mammogram and ultrasound Impression: Suspicious mass RIGHT breast 6 o'clock 7 cm from the nipple measuring 8 x 7 x 7 millimeters. Indeterminate RIGHT axillary lymph node measuring 2.3 x 0.6 x 1.0 cm. RECOMMENDATIONS: Ultrasound-guided core needle biopsy of the RIGHT breast lesion and RIGHT axillary lymph node. BI-RADS Category 4: Suspicious 01/02/2024 Biopsy/Pathology A) RIGHT BREAST, 6:00, 7 CM FROM NIPPLE, ULTRASOUND-GUIDED CORE BIOPSY: 1. Invasive lobular carcinoma, measuring 6 mm in core biopsy a. Preble grade: I of III; Tristen score: 5 of 9 b. Angio-lymphatic invasion: Absent c. Associated LCIS: Present, solid type 2. Breast Ancillary Testing: a. Hormone Receptors: Estrogen receptor: Positive (99%, strong staining) Progesterone receptor: Negative b. HER2 by IHC: Equivocal (2+ by manual morphometry) HER2 by FISH: Negative HER2/CEP17 ratio: 1.16 HER2 signals/cell: 2.32 CEP17 signals/cell: 2.00 c. Ki-67: 5% by image analysis B) RIGHT AXILLA, LYMPH NODE, ULTRASOUND-GUIDED CORE BIOPSY: 1. Fragments of benign lymph node 2. Negative for metastatic carcinoma in this sampling 01/09/2024 Other Surgery consultation with Dr. Val Watts who discussed treatment options. The patient preferred to proceed with lumpectomy. Discussed that she would be a candidate to consider omission of sentinel node biopsy, which the patient was interested in because of the lymphedema she has dealt with in herleft arm. Dr. Watts felt that this was reasonable as long as she is willing to undergo radiation. The patient was not interested in a referral for genetic counseling. 01/25/2024 Surgery and Procedures Right breast lumpectomy was performed by Dr. Val Watts. A) RIGHT BREAST, WIRE-LOCALIZED LUMPECTOMY: 1. Invasive lobular carcinoma, Preble grade I of III a. Size: 9 mm b. Core biopsy site is associated with tumor 2. Lobular carcinoma in situ (LCIS), classic type 3. Margins: a. Invasive carcinoma is 2 mm from the initial medial margin and 6 mm from the anterior margin c. See part B below for status of additional posterior-medial margin 4. Breast Ancillary Testing: Performed on prior case ([id number]) a. Hormone Receptors: Estrogen receptor: Positive (99%, strong staining) Progesterone receptor: Negative b. HER2 by IHC: Equivocal (2+ by manual morphometry) HER2 by FISH: Negative HER2/CEP17 ratio: 1.16 HER2 signals/cell: 2.32 CEP17 signals/cell: 2.00 c. Ki-67: 5% by image analysis B) RIGHT BREAST, POSTERIOR-MEDIAL MARGIN, RE-EXCISION: 1. Lobular carcinoma in situ (LCIS), classic type 2. Focal benign skeletal muscle 3. Negative for invasive malignancy SPECIMEN Procedure: Excision (less than total mastectomy) Specimen Laterality: Right TUMOR Tumor Site: Clock position : 6 o'clock Tumor Site: Distance from nipple (Centimeters): 7 cm Histologic Type: Invasive lobular carcinoma Histologic Grade (Preble Histologic Score): Glandular (Acinar) / Tubular Differentiation: Score 3 Nuclear Pleomorphism: Score 1 Mitotic Rate: Score 1 Overall Grade: Grade 1 (scores of 3, 4 or 5) Tumor Size: Greatest dimension of largest invasive focus (Millimeters): 8 mm Tumor Focality: Single focus of invasive carcinoma Ductal Carcinoma In Situ (DCIS): Not identified Lobular Carcinoma In Situ (LCIS): Present Lymphatic and / or Vascular Invasion: Not identified Treatment Effect in the Breast: No known presurgical therapy MARGINS Margin Status for Invasive Carcinoma: All margins negative for invasive carcinoma Distance from Invasive Carcinoma to Closest Margin: 6 mm Closest Margin(s) to Invasive Carcinoma: Anterior REGIONAL LYMPH NODES Regional Lymph Node Status: Not applicable (no regional lymph nodes submitted or found) pTNM CLASSIFICATION (AJCC 8th Edition) pT Category: pT1b pN Category: pN not assigned (no nodes submitted or found) 02/07/2024 Other Medical Oncology consultation with Dr. Mariah Rutledge. Plan to obtain Oncotype DX recurrence score.Proceed with ultrasound of the right axilla. Discussed possibly foregoing chemotherapy and radiation therapy, but recommended a Radiation Oncology consultation. Will have to factor in her cardiac history when discussing endocrine therapy. Follow-up in 3 weeks. 02/15/2024 Other Oncotype DX Recurrence Score Result: 18 Distant Recurrence Risk at 9 Years with AI or STOKES alone: 5% Group Average Absolute Chemotherapy Benefit: <1% 02/22/2024 Critical Imaging Ultrasound of the right axilla demonstrated three right axillary lymph nodes, one of which containsa biopsy clip. The largest lymph node measuring up to 2.4 cm was biopsied and proven to be benign. The other two lymph nodes may reflect some reactive change with slightly thickened lymph node cortices. BI-RADS Category 3: Probably Benign Dr. Rutledge plans to obtain an ultrasound again in 6 months. 03/04/2024 - Radiation Therapy Radiation Therapy Treatment Details (Noted on 02/13/2024) Site: Right Breast Technique: No technique specified Goal: Curative Planned Treatment Start Date: 03/04/2024 Malignant Neoplasm Of Breast Female Left (HCC) 12/21/2006 Critical Imaging Mammogram of the left breast demonstrated a new 3 cm nodular density at approximately the 9:00 position of the left breast at the point of palpable concern. Ultrasound of the left breast demonstrated two separate hypoechoic lesions in the 9-9:30 position of the left breast, 5-7 cm lateral to the nipple. Attempts at cyst aspiration were unsuccessful. 12/21/2006 Biopsy/Pathology Diagnosis Breast, Left, 9 o'clock position, ultrasound guided biopsy of mass: Infiltrating ductal carcinoma 1. Tristen grade: III of III 2. Tristen score: 8 of 9 3. Angiolymphatic invasion: Absent 4. Associated DCIS: Absent 12/2006 Surgery and Procedures Left breast lumpectomy and left axillary lymph node dissection was performed. Pathology demonstrated infiltrating ductal carcinoma, grade 3. 03/02 lymph nodes were positive. ER/OK -, HER2 +. 02/09/[address] Chest Impression: 1. 1 cm sclerotic area in left humeral head - cannot exclude a metastatic focus. Suggest further evaluation - possibly MR or isotope bone scan. 2. Surgical changes in left axilla. 3. No other suggestion of metastatic disease. 02/13/2007 Critical Imaging Nuclear medicine whole body bone scan demonstrated abnormal focal activity in proximal left humerusand right pedicle of L5. 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 03/2007 - 06/2007 Chemotherapy Adriamycin and cyclophosphamide x 15 weeks under the care of Dr. Grover Ventura at [facility]. The patient was treated on a NCI trial. 07/18/2007 - 09/2007 Chemotherapy Taxol weekly. 07/2007 - 06/2008 Biological/Targeted/Hormone Therapy Herceptin x 1 year. 11/12/2007 - 12/27/2007 Radiation Therapy Radiation therapy to the left breast and left supraclavicular region under the care of Dr. Katrin Frias at [facility], [facility]. The left breast received 4680 cGy in 26 fractions, thesupraclavicular region received 4500 cGy in 25 fractions, and there was a boost to a dose of 1400 cGy in 7 fractions. INTERVAL HISTORY: The patient was seen and examined today with Dr. Joseph. The patient reports doing well overall. She reports healing well following the right breast lumpectomy. She denies any incisional concerns. She denies any pain of the right breast. She reports tolerating previous radiation therapy to the left breast and supraclavicular area well overall. She did experience skin redness with that treatment and used aloe vera gel with benefit. A few months following completion of treatment for the left breast cancer she developed swelling of the left arm. She wasinitially told that this was lymphedema and she went to therapy and received treatment without improvement. Years later she saw a Dowel Maker for an unrelated issue who then told her that her left arm swelling was due to morphea, not lymphedema. She was prescribed betamethasone dipropionate creamand use of the cream resulted in decreased size of the left arm. The left arm size is now stable and is still larger than the right arm, but better than it had been initially. She denies pain of the left arm. She denies any persistent skin changes to the left breast following her previous treatments . The patient has received previous radiation therapy, as detailed above. The patient denies a history of connective tissue disorders or inflammatory bowel disease. Her ECOG performance status is 0. REVIEW OF SYSTEMS Review of systems was negative except as documented above. MEDICAL HISTORY Past Medical History: Diagnosis Date Chronic Kidney Disease (CKD), Stage 3a Glomerular Filtration Rate (GFR) 45 To 59 (HCC) Dyslipidemia Hernia Hiatal Hypertension Essential Primary Hypothyroidism Lymphedema Left arm Malignant Neoplasm Of Breast Female Left (HCC) Malignant Neoplasm Of Breast Female Right (HCC) Myocardial Infarction Acute (HCC) SURGICAL HISTORY Past Surgical History: Procedure Laterality Date AXILLARY NODE DISSECTION Left BREAST LUMPECTOMY Right BREAST LUMPECTOMY Left CORONARY STENT PLACEMENT x 2 HYSTERECTOMY TOTAL ABDOMINAL TONSILLECTOMY FAMILY HISTORY Family History Problem Relation Name Age of Onset Prostate cancer Brother SOCIAL HISTORY Social History Socioeconomic History Marital status: Number of children: 1 Tobacco Use Smoking status: Former Current packs/day: 0.00 Average packs/day: 1 pack/day for 30.0 years (30.0 ttl pk-yrs) Types: Cigarettes Start date: 1973 Quit date: 2003 Years since quittin.4 Smokeless tobacco: Never Substance and Sexual Activity Alcohol use: Yes Comment: Occasional Social History Narrative She lives alone but she has a son who was adopted who lives nearby. She has one grandchild. 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 OBJECTIVE BP (!) 182/71 (BP Location: Right arm, Patient Position: Sitting, Cuff Size: Regular) Pulse 64 Temp 36.3 ??C (Temporal) Wt 77.6 kg PHYSICAL EXAMINATION General: Alert and oriented, in no apparent distress. The patient is here today with her [id number]. Heart: Regular rate and rhythm. Lungs: Clear to auscultation bilaterally. Extremities: Left arm is visibly larger than right arm. ASSESSMENT / PLAN #1 Stage IA (pT1b, cN0, cM0, G1, ER+, OK-, HER2-) invasive lobular carcinoma of the right breast s/p right breast lumpectomy on January 25, 2024 #2 Previous infiltrating ductal carcinoma of the left breast s/p left breast lumpectomy and left axillary dissection in December 2006 followed by adjuvant chemotherapy, Herceptin, and radiation therapy to the left breast and left supraclavicular region I had a discussion with the patient and her [id number] regarding her breast cancer diagnosis including information regarding her staging, grade, and hormone receptors. We reviewed her oncologic history as detailed above. She recently had a visit with Dr. Rutledge and chemotherapy was not recommended. Her recent right axilla ultrasound was negative and Dr. Rutledge plans on repeating an ultrasound in 6 months. We also had a detailed discussion regarding the risks, benefits, and alternatives of radiotherapy in this setting. Dr. Joseph offered radiation therapy to the right whole breast in 5 or 15 fractions.We also discussed the option of omission of radiation therapy, if the patient is planning to proceed with endocrine therapy. I discussed the logistics as well as the acute and chronic side effects of radiotherapy. The acute side effects are common and include, but are not limited to, fatigue, radiation dermatitis, breast swelling and discomfort. Long-term side effects include, but are not limited to, skin changes and texture changes of the breast, possible breast asymmetry, pulmonary scarring, radiation pneumonitis, increased risk of rib fracture with significant trauma, lymphedema, and a very small risk of secondarymalignancy. The patient was provided with a written summary of recommendations. Her questions were answered to her verbalized satisfaction. Dr. Joseph also met with the patient today, please see her attestation for details. After their discussion, the patient decided to proceed with radiation therapy. She is scheduled for CT simulation today. A prescription for mometasone cream will be sent to her preferred pharmacy. The patient was provided with our contact information. She will contact us with questions or concerns. She verbally expressed her understanding of the plan. EDUCATION: Ready to learn, no apparent learning barriers were identified; learning preferences include listening. Explained diagnosis and treatment plan; patient expressed understanding of the content. PRIMARY PROVIDER Rosario Faulkner D.O. I personally spent 60 minutes in care of the patient today. Time includes both non face to face andface to face patient care. Signed by: Vee Ron P.A.-C., M.S. 02/29/2024 9:37 AM CDT [facility] [address] [place] [address] Associated attestation - Bernie Joseph M.D. - 02/29/2024 11:39 AM CDT RADIATION ONCOLOGY CONSULT I saw and evaluated the patient and participated in the [place] portions of the service. I reviewed thedocumentation of Ms. Vee Ron PA-C, and agree with the findings and plan. Please see Ms. Ron's detailed note for the patient's initial presentation and work-up. Briefly, Ms. Napier is a very pleasant 78 year old female with a history of a left sided breast cancer treated with surgery, [...] negative by 6mm, no LVSI, G1, ER+, OK/HER2 negative, Ki-67% of 5% and Oncotype DX= 18. She states she was diagnosed with morphea on her left arm by her electrical test engineer, but does not recall a biopsy and the steroid cream that she uses has helped. She does not have any other connective tissue disorders. On exam, she appears well. No cervical, supra/infraclavicular, or axillary adenopathy. Her breasts are asymmetric with the left breast smaller than the right with hyper and hypo-pigmented skin from her prior radiation. No worrisome masses, lumps, or worrisome skin changes. The right breast has a well healed jes-areolar incision. The left breast does have a mobile post-treatment seroma laterally.Her left arm is more edematous than the right arm. We discussed the findings above and below in this note with the patient and her daughter in law. Wediscussed her treatment alternatives including observation vs adjuvant radiation therapy. We discussed not overlapping with prior radiation. We discussed whole breast and either ultra or conventionally hypofractionated radiation therapy with 5 vs 15 daily fractions, respectively. We also discussed mini-tangents to minimize overlap. We discussed the rationale, risks, side effects and goals of radiation therapy. We discussed her treatment alternatives including observation vs adjuvant radiation therapy. We discussed both conventional and ultra-hypofractionated radiation with 15 vs 5 fractions. We also discussed whole breast vs partial breast radiation options. We discussed that we will have to be careful not to overlap with her prior radiation. We discussed the acute as well as intermediate risks, including, but not limited to fatigue, skin erythema/desquamation, fibrosis of the breast, small risks of bone fracture, radiation pneumonitis, cardiac disease, and secondary malignancies. We discussed the risks of overlap. If she really has a diagnosis of morphea on the left arm, we discussed the small possibility of developing morphea on her right breast. She understood and her questions were answered. She wished to proceed with treatment. Wetentatively plan on delivering 2600 cGy in 5 fractions likely with mini-tangents starting March 06, 2024. My thanks to Aamir Thompson and Kaushik for the opportunity to participate in this patient's care. EDUCATION Ready to learn, no apparent learning barriers were identified; learning preferences include listening. Explained diagnosis and treatment plan; patient expressed understanding of the content. CONSENT Discussed the risks, benefits, alternatives, and the necessity of other members of the healthcare team participating in the procedure. All questions answered and consent given. DIAGNOSIS #1 Stage IA (pT1b, cN0, cM0, G1, ER+, OK-, HER2-) invasive lobular carcinoma of the right breast s/p right breast lumpectomy on January 25, 2024 #2 Previous infiltrating ductal carcinoma of the left breast s/p left breast lumpectomy and left axillary dissection in December 2006 followed by adjuvant chemotherapy, Herceptin, and radiation therapy to the left breast and left supraclavicular region Signed by: Bernie Joseph M.D. 02/28/24 documented in this encounter Miscellaneous Notes * Addendum Note - Bernie Joseph M.D. - 02/28/2024 1:00 PM CDTEncounter addended by: Bernie Joseph M.D. on: 02/28/2024 5:11 PM Actions taken: Remove cosign from clinical note * Addendum Note - Vee Ron P.A.-C., M.S. - 02/28/2024 1:00 PM CDTEncounter addended by: Vee Ron P.A.-C., M.S. on: 02/29/2024 9:39 AM Actions taken: Clinical Note Signed * Addendum Note - Bernie Joseph M.D. - 02/28/2024 1:00 PM CDTEncounter addended by: Bernie Joseph M.D. on: 02/29/2024 11:39 AM Actions taken: Cosign clinical note with attestation documented in this encounter Plan of Treatment Not on file documented as of this encounter Visit Diagnoses Diagnosis 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 (HCC)- Primary documented in this encounter
--- OUTSIDE RECORDS SUMMARY | 2024-03-18 03:57 | XMS_ITS | Encounter Summary ---
Author Organization [facility] Address [address] [place] [id number] Care Team Providers Care Web Graphic Designer Name Role Phone Unavailable Primary Care Provider Unavailabl e Encounter Details Date Type Department Care Team (Late st Contact Info) Description 03/08/2024 10:25 AM CDT Hospital Encounter Department of Radiation Oncology in [place], [place] [address] [place] [phone] Bernie Joseph M.D. [address] [place] [phone] Social History Tobacco Use Types Packs/Day Years [...]
--- OUTSIDE RECORDS SUMMARY | 2024-03-18 03:57 | XMS_ITS | Encounter Summary ---
Author Organization [facility] Address [address] [place] [id number] Care Team Providers Care Harbor Police Launch Commander Name Role Phone Unavailable Primary Care Provider Unavailabl e Encounter Details Date Type Department Care Team (Late st Contact Info) Description 03/06/2024 11:12 AM CDT Hospital Encounter Department of Radiation Oncology in [place], [place] [address] [place] [phone] Bernie Joseph M.D. [address] [place] [phone] Social History Tobacco Use Types Packs/Day Years [...]
--- OUTSIDE RECORDS SUMMARY | 2024-03-18 03:57 | XMS_ITS | Clinical Summary ---
Author Organization [facility] Address [place], [place] [address] Care Team Providers Care Assistant Dean Of Students Name Role Phone Rosario Faulkner DO Primary Care Provider [phone] Allergies No known active allergies Medications Medication Sig Dispensed Refills Start Date End Date Status ASPIRIN 81 MG TAB, DELAYED RELEASEIndications:Co ronary atherosclerosis of unspecified type of vessel, [place] or graft take 1 tablet (81 mg) [...] sublingual tabletIndications:Ath erosclerosis of coronary artery of [place] heart without angina pectoris, unspecified vessel or [...] mg tabletIndications:Ath erosclerosis of coronary artery of [place] heart without angina pectoris, unspecified vessel or [...] Coronary atherosclerosis of unspecified type of vessel, [place] or graft Overview: STATUS POST OLD MYOCARDIAL INFARCTION Unspecified hypothyroidism REMOTE HISTORY OF PLEURISY Malignant neoplasm of breast (female), unspecifi ed site Overview: 2006 Resolved Problems Problem Noted Date Diagnosed Date Resolved Date Tobacco use disorder 023 Encounters Date Type Department Care Team Description 03/16/2024 Refill [facility] [address] [place] [address] Rosario Faulkner, DO Refill Request (Hydrochlorothiazid e) 02/12/2024 Orders Only [facility] [address] [place] [address] [address] Val Watts MD 1 scan: (1-Ord) [place], BREAST LUMPECTOMY W PRE-OP WIRE LOCALIZATION, 01/25/2024 02/06/2024 1:00 PM CDT Office Visit [facility] [address] [place] [address] [address] Val Watts MD Post-op (Right lumpectomy 01/25/24) 02/06/2024 Travel 01/25/2024 8:00 AM CDT Office Visit [facility] at [address] [place] [address] Val Watts MD 01/25/2024 Lab Requisition [facility] [phone] Val Watts MD 01/15/2024 Refill [facility] [address] [place] [address] Shaqra, Rosario Rica, DO Refill Request (Carvedilol, Lisinopril) 01/10/2024 9:20 AM CDT Preop Visit [facility] [address] [place] [address] Shaqra, Rosario Rica, DO Blood Pressure (Continued elevated readings); Preoperative Exam ([facility] - Dr. Watts - R lumpectomy ) 01/09/2024 3:15 PM CDT Office Visit [facility] [address] [place] [address] Val Watts MD Consult (Right breast cancer referred by Dr. Opal Faulkner) 01/09/2024 Travel 01/09/2024 Orders Only [facility] [address] [place] [address] Shaqra, Rosario Rica, DO 1 scan: (1-Ord) DMEETRIS, ZAC CLIP REPLACEMENT RT, 01/02/2024 01/08/2024 Orders Only [facility] [address] [place] [address] Shaqra, Rosario Rica, DO 2 scans: (2-Ord) [facility] BIOPSY LYMPH AXILLARY, 01/02/2024 01/06/2024 Orders Only [facility] [address] [place] [address] Shaqra, Rosario Rica, DO 1 scan: (1-Ord) [facility] BIOSY LYMPH AXILLARY, 01/02/2024 01/02/2024 Lab Requisition [facility] [phone] Unknown, Doctor 01/02/2024 Lab Requisition [facility] [phone] Unknown, Doctor 12/28/2023 10:30 AM CDT [place] [facility] [address] [place] [address] Francia Hernandez MD Derm Problem 12/28/2023 Travel 12/20/2023 Orders Only [facility] [address] [place] [address] Kaushik Rosario Rica, DO <No scans attached> 12/19/2023 3:15 PM CDT Ancillary Procedure [facility] [address] [place] [address] 12/19/2023 2:30 PM CDT Ancillary Procedure [facility] [address] [place] [address] 12/19/2023 Ancillary Orders [facility] [address] [place] [address] Sir Faulkneri Rica, DO 12/19/2023 Travel from Last 3 Months Immunizations Name Administration Dates Next Due AMB INFLUENZA IIV3 (AGE 65+ YRS) PF (Flu Clinic Only) 07/11/2019 AMB Influenza, IIV3 (Age >=3 years)(Flu Clinic Only) 07/09/2008 Amb Influenza, Inact (High-d ose) (Flu Clinic Only) 06/07/2016 COVID-19 vaccine (Moderna 100mcg/0.5mL) PF, V 11/27/2020,10/30/2020 Influenza, High-dose Inactivated 018,06/07/2016,06/18/2015,06/16,07/07/2013 Influenza, High-dose [...] 36.1 ??C (97 ??F) 11/07/2022 12:00 PM CARTRIDGE ASSEMBLER Respiratory Rate 16 11/07/2022 1:35 PM CARTRIDGE ASSEMBLER Oxygen Saturation 98% 02/06/2024 1:04 PM CDT Inhaled Oxygen Concentration - - Weight 77.2 kg (170 lb 4.8 oz) 02/06/2024 1:04 P M CDT Height 163.8 cm (5' 4.5) 10/20/2023 12:59 PM CS T Body Mass Index 28.78 10/20/2023 12:59 PM CARTRIDGE ASSEMBLER Plan of Treatment Upcoming Encounters Date Type Department Care Team (Late st Contact Info) Description 12/30/2024 10:30 AM CDT Office Visit [facility] [address] [place], [place] [id number] Francia Hernandez MD [address] [place] [address] Health Maintenance Due Date Last Done Comments [...] Additional history exists Tetanus booster 12/07/2028 12/07/2018, 04/0 05/2007, 12/18/2006 (Completed outside of [facility]) Colonoscopy through age 75 03/17/203003/17, 03/17/2020, 03/17/2020, Additional history exists Tdap Completed 12/07/2018, 12/18/2006 Hepatitis C screening for ag e 18-79 Completed 11/06/2019 Zoster (shingles) series for age 50+ Completed 04/20/2020, 09/20/2019, 10/05/2012 DEXA/DXA scan for age 65+ Completed 2020, 08/07/2012, 10/09/2008 Pneumococcal series for age 65+ Completed 06/14/2023, 03/16/2015, 06/16/2014, Additional history exists Medical Devices Implanted Type Area Migratory Game Bird Biologist Device Identifier Shelf Expiration Date Model / Serial / Lot Port X Port Mri 6fr Venous Cath Kit [id number] - [id number] Implanted:Qty: 1 on 08/21/2007 at [facility] Left: Subclavian Vein [employer] [id number] / / [id number] Procedures Procedure Name Priority Date/Time Associated Diagnosis [...] BREAST NEEDLE W BELL W GUIDE RIGHT ERIN 01/02/2024 12:00 AM CDT Abnormal mammogram of right breast US BIOPSY LYMPH NODE BREAST CENTER [facility] 01/02/2024 12:00 AM CDT Abnormal mammogram of right breast US BREAST UNILATERAL RIGHT LIMITED [facility] 12/19/2023 2:59 PM CDT Abnormal mammogram XR MAMMO ADRIENNE UNI ADDL VIEWS RIGHT ERIN 12/19/2023 2:41 PM CDT Abnormal mammogram XR DXA BONE DENSITY 2 SITES AXIAL Routine 06/21/2021 12:00 PM CDT Menopause COLONOSCOPY 03/17/2020 8:03 AM CDT ANTI HCV Add On 11/06/2019 2:08 PM CARTRIDGE ASSEMBLER Need for hepatitis C screening test from Last 3 Months or Most Recently Relevant to Health Maintenance Results * LAB TRACKING EVENT (01/25/2024 12:34 PM CDT) Only the most recent of2 resultswithin the time period is included. Other (Other) Client Collect / Unknown 01/25/2024 12:34 PM CDT 01/27/2024 10:16 AM CDT Val Watts MD LAB BILL ONLY [facility] [address] [place] [address], [place] * PATH TISSUE EXAM (01/25/2024 12:34 PM CDT) Case Report Pathology Report ?Case: [id number] ? Authorizing Provider: ??Val Watts MD ??Collected: ? 01/25/2024 1234 ? Ordering Location: ? [facility] ?Received: ?01/25/2024 1301 ? Pathologist: ? Julio Cesar Erazo MD ? Specimens: ?? A) - Right Breast Lump ? B) - Right Breast ? 01/29/2024 11:44 AM CDT [facility] Final Diagnosis A) RIGHT BREAST, WIRE-LOCALIZED LUMPECTOMY: 1. Invasive lobular carcinoma, Bridge[place] grade I of III ?a. Size: 9 mm ?b. Core biopsy site is associated with tumor 2. Lobular carcinoma in situ (LCIS), classic type 3. Margins: ?a. Invasive carcinoma is 2 mm from the initial medial margin and 6 mm from the anterior margin ?c. See part B below for status of additional posterior-medial margin 4. Breast Ancillary Testing: Performed on prior case ([id number]) ?a. Hormone Receptors: ?Estrogen receptor: Positive (99%, [...] Negative for invasive malignancy 01/29/2024 11:44 AM [facility] ENTRAL LABORATORY Comment In light of more [...] ductal as initially interpreted on the biopsy ([id number]). Select slides seen in consultation with Dr. Richardson who agrees with the interpretation of lobular carcinoma and LCIS. 01/29/2024 11:44 AM [facility] Clinical Information RIGHT breast mass measuring 8 mm by imaging at 6:00, 7 cm from the nipple with biopsy showing invasive carcinoma, grade I ([id number]) 01/29/2024 11:44 AM [facility] Gross Description A) Received fresh, labeled with the patient's name and right breast lumpectomy, is a 28.7 gram,??6.5 (SI) x 4.5 (ML) x 2.3 (AP)??cm wire-localized breast lumpectomy specimen.??The localizing wire is identified within the specimen.??The specimen is inked by the surgical staff in the OR as follows: Anterior--[place] Posterior--Black Superior--Blue Inferior--Red Medial--Green Lateral--Yellow The superior [...] the tumor. No other lesions are identified. Eligibility And Occupancy Interviewer sections are submitted in 15 cassettes: 1. [...] hours. LDW 01/25/2024 ?? 01/29/2024 11:44 AM T [facility] Intraoperative Consultation A) RIGHT BREAST, LUMPECTOMY, [...] surgical procedure. ??This testing was performed at: [address] [address] 01/29/2024 11:44 AM [facility] Microscopic Description The final diagnosis is based on microscopic examination of appropriate sections of all specimens. Immunohistochemis try for E-cadherin was performed on block A9 and demonstrates loss of expression in the invasive and in situ component, consistent with a lobular phenotype. 01/29/2024 11:44 AM [facility] SYNOPTIC REPORTING INVASIVE CARCINOMA OF THE BREAST: Resection INVASIVE CARCINOMA OF THE BREAST: RESECTION - All Specimens 8th Edition - Protocol posted: 05/31/2023 SPECIMEN ?? Procedure: ?Excision (less than total mastectomy) ?? Specimen Laterality: ?Right TUMOR ?? Tumor Site: ?Clock position ?? : ?6 o'clock Tumor Site: ?Distance from nipple (Centimeters): 7 cm Histologic Type: ?Invasive lobular carcinoma Histologic Grade (Tristen Histologic Score): ? Glandular (Acinar) / Tubular [...] (biopsy site present; also consider prior biopsy [id number]) 01/29/2024 11:44 AM CDT [facility] Additional Information Interpreted at [facility], Central Laboratory - [address] [address] 01/29/2024 11:44 AM CDT [facility]- ENTRAL LABORATORY Other (Right Breast Lump) 01/25/2024 12:34 PM CDT 01/25/2024 1:01 PM CDT Specimen (specimen) (Right Breast) 01/25/2024 1:00 PM CDT 01/25/2024 1:26 PM CDT Val Watts MD PATHOLOGY/CYTOLO GY Performing Organization Address [facility] Co de Phone Number [facility] [address] [place] [address], * BREAST LOCALIZATION WIRE PLACEMENT (01/25/2024 12:00 AM CDT) Anatomical Region Laterality Modality Other Val Watts MD IMAGING * TSH WITH REFLEX (01/10/2024 10:17 AM CDT) TSH 0.49 0.27 - 4.20 uIU/mL 01/10/2024 10:38 PM CDT [facility] Blood BLOOD SPECIMEN / Unknown Butterfly / Unknown 01/10/2024 10:17 AM CDT 01/10/2024 10:19 AM CDT Narrative [facility] - 01/10/2024 10:38 PM CDT In Adults, TSH values between 5.00 and 10.00 uIU/ml do not necessarily indicate the presence of Hypothyroidism. Correlation with clinical findings such as presence of goiter and/or Thyroperoxidase (TPO) Antibody may be helpful. For more information please refer to ANTHONY 2004; 291: 228-238. Rosario Faulkner DO CHEMISTRY Performing Organization Address [facility] Co de Phone Number [facility] [address] [place] [address], * POTASSIUM (01/10/2024 10:17 AM CDT) POTASSIUM 4.5 3.5 - 5.1 mmol/L 01/10/2024 10:38 PM CDT [facility] Blood BLOOD SPECIMEN / Unknown Butterfly / Unknown 01/10/2024 10:17 AM CDT 01/10/2024 10:19 AM CDT Rosario Faulkner DO CHEMISTRY Performing Organization Address [facility] Co de Phone Number [facility] [address] * (ABNORMAL) CREATININE (01/10/2024 10:17 AM CDT) eGFR 40(L) >90 mL/min/1.7 3m2 01/10/2024 10:38 PM CDT [facility] Comment:As of 2021, eG FR is calculated by the CKD-EPI creatinine equation without race adjustment. ??eGFR can be influenced by muscle mass, exercise, and diet. ??The reported eGFR is an estimation only and is only applicable if the renal function is stable. CREATININE 1.36(H) 0.50 - 0.90 mg/dL 01/10/2024 10:38 PM CDT [facility] TRAL LABORATORY Blood BLOOD SPECIMEN / Unknown Butterfly / Unknown 01/10/2024 10:17 AM CDT 01/10/2024 10:19 AM CDT Rosario Faulkner DO CHEMISTRY Performing Organization Address [facility] Co de Phone Number [facility] [address] * PATH BREAST CORE BIOPSY (01/02/2024 9:45 AM CDT) Case Report Pathology Report ?Case: [id number] ? Authorizing Provider: ??Unknown, Doctor ?Collected: ? 01/02/2024 0945 ? Ordering Location: ? [facility] ?Received: ?01/03/2024 0811 ? Pathologist: ? iA, Sugar Huerta, ? MD ? Specimens: ?? A) - Right Breast Core Ultrasound Biopsy ? B) - Right Axilla ? 02/16/2024 5:11 PM CDT [facility]-C ENTRAL LABORATORY Amendment 01/05/2024 - Amendment issued to incorporate ancillary studies. 01/09/2024 - Amendment issued to incorporate ancillary HER2 FISH studies. 01/30/2024 - This amendment is issued to change the diagnosis from Invasive Ductal Carcinoma to Invasive Lobular Carcinoma after review and e-cadherin staining of the excision specimen ([id number]). The remainder of the diagnosis is unchanged. 02/16/2024 - The tissue was submitted to [facility] for Oncotype DX for Breast Cancer testing. Please see attached scanned report. 02/16/2024 5:11 PM CDT [facility]-C ENTRAL LABORATORY Final Diagnosis A) RIGHT BREAST, 6:00, 7 CM FROM NIPPLE, ULTRASOUND-GUIDED CORE BIOPSY: 1. Invasive lobular carcinoma, measuring 6 mm in core biopsy ?? a. Bridgeport grade: I of III; Bridgeport score: 5 of 9 ?? b. Angio-lymphatic [...] carcinoma in this sampling 02/16/2024 5:11 PM CDT [facility] Amendment electronically signed by Sugar [...] with Dr. Richardson 02/16/2024 5:11 PM CDT [facility] Clinical Information SITE A: INDICATION: Right breast mass Lesion description: Irregular indistinct hypoechoic mass Dimensions: 8 x 7 x 7 mm Location: Right breast, 6:00, 7 cm from nipple SITE B: INDICATION: Right axillary lymph node with mild cortical thickening Lesion description: Oval circumscribed and solid Dimensions: 2.3 x 0.6 x 1 cm Location: Right axillary lymph node 02/16/2024 5:11 PM CDT [facility] ENTRAL LABORATORY Gross Description A) Label: ??Patient's name [...] 72 hours. TRS 01/03/2024. 02/16/2024 5:11 PM T [facility] Microscopic Description The final diagnosis is based on microscopic examination of appropriate sections of all specimens. A) The presence of black ink is confirmed on tissue sections. B) The presence of blue ink is confirmed on tissue sections. 02/16/2024 5:11 PM T [facility] Cytogenetics Summary Cytogenetic testing has been ordered and will be reported separately. 02/16/2024 5:11 PM T [facility] SYNOPTIC REPORTING Breast Biomarker Reporting Template BREAST: [...] NUCLEI ANALYZED FOR KI67. The FDA approved [employer] DNA Probe Kit was developed and its performance characteristics determined by [employer]. ??This test incorporates minor modifications to protocol and validated by the [facility] to yield equivocal or superior performance. This FISH test uses a multiplex probe stain procedure. 02/16/2024 5:11 PM CDT [facility] ENTRAL LABORATORY Additional Information Interpreted at [facility] [employer], Central Laboratory - [address] [place] [address] [address] Patients with breast cancers that are HER2 [...] in eligibility currently). 02/16/2024 5:11 PM CDT [facility] ENTRAL LABORATORY Other (Right Breast Core Ultrasound Biopsy) 01/02/2024 9:45 AM CDT 01/03/2024 8:11 AM CDT Specimen (specimen) (Right Axilla) 01/02/2024 9:48 AM CDT 01/03/2024 8:11 AM CDT Doctor Unknown PATHOLOGY/CYTOLOGY Performing Organization Address [facility] Co de Phone Number [email or web address] [address] [place] [address], [place] * CG HER2 BREAST (01/02/2024 9:45 AM CDT) Other (Right Breast Core Ultrasound Biopsy) 01/02/2024 9:45 AM CDT 01/05/2024 11:44 AM CDT Doctor Unknown LABORATORY Performing Organization Address [facility] Co de Phone Number [email or web address] [address] [place] [address], [place] * CYTOGENETICS MALIGNANT TISSUE STUDIES (01/02/2024 9:45 AM CDT) RFR Breast cancer 01/09/2024 1:01 PM CDT [facility] LAB[facility] TEST & RESULT SUMMARY HER2 FISH Breast: See pathology report [id number]. See comments. 01/09/2024 1:01 PM CDT [email or web address] _ 01/09/2024 1:01 PM CDT [email or web address] COMMENTS This record is used as an internal laboratory test designed for workflow purposes only. 01/09/2024 1:01 PM CDT [facility] NTRAL LABORATORY SOURCE Right Breast Core Ultrasound Biopsy (Paraffin Slides A1 2 uns) [id number] 01/09/2024 1:01 PM CDT [email or web address] Other (Right Breast Core Ultrasound Biopsy) 01/02/2024 9:45 AM CDT 01/05/2024 11:44 AM CDT Doctor Unknown LABORATORY Performing Organization Address [facility] Co de Phone Number [email or web address] [address] [place] [address], [place] * US BIOPSY LYMPH NODE BREAST [...] provider. RIGHT BREAST ULTRASOUND, 12/19/2023 PLEASE SEE [id number] FOR DIGITAL RIGHT MAMMOGRAM SAME DAY. Rosario [...] mild thickening of the cortex. Rosario Rica Keithqra DO MAMMO * XR DXA BONE DENSITY 2 SITES [...] recommended in 3-5 years. Farzana Isabel PA-C [facility] 06/29/2021 Narrative 06/29/2021 1:05 PM CDT For Patients: Results are automatically released to your [facility] (MyChart) account once available, in compliance with federal regulations. This means that you may see your results before your provider has had a chance to review them. Please allow 2-3 business days for your provider to comment on the results. XR DXA Bone Mineral Density (BMD) EXAM LOCATION: [address] [address] PATIENT NAME: Iram Napier DATE OF : [...] two scanners are made by the same cider maker. PROCEDURE: Dual-energy x-ray absorptiometry performed with routine [...] Z-Score: + 1.2 Change from prior in 2011: ??Increase 7.2%. RESULTS FEMUR Left femoral neck BMD: 0.968 g/cm2 T-Score: - 0.5 Z-Score: + 1.1 Change from prior in 2012: ??Decrease 5.3%. Right femoral neck BMD: 0.947 g/cm2 T-Score: - 0.7 Z-Score: + 1.0 Change from prior in 2012: ??Decrease 6.3%. Left hip BMD: 1.039 g/cm2 T-Score: + 0.2 Z-Score: + 1.7 Change from prior in 2011: ??Decrease 4.7%. Right hip BMD: 1.035 g/cm2 [...] an adequate candidate for conscious sedation. The [id number] was passed through the anus and advanced [...] reponse to care. [facility] and nursing notes for moderate sedation details. Total physician intraservice time was 25 minutes. Mark Abreu MD 03/17/2020 9:23:04 AM This report has been signed electronically. Note Initiated On: 03/17/2020 8:03 AM Procedure Code(s): --- Professional --- 52574, Colonoscopy, flexible; diagnostic, including collection of specimen(s) bybrushing or washing, when performed (separateprocedure) Diagnosis Code(s): --- Professional --- Z83.71, Family history of colonic polyps CPT copyright 2019 [employer]. All rights reserved. The codes documented in this report are preliminary and upon special officer automat reviewmay be revised to meet current compliance requirements. Scope In: 8:48:31 AM Scope Withdrawal Time 0 hours 6 minutes 49 seconds Scope Out: 9:09:04 AM Mark Abreu MD PROCEDURE ORD * ANTI HCV (11/06/2019 2:08 PM CARTRIDGE ASSEMBLER) HEPATITIS C ANTIBODY Non-React jose carlos Non-React jose carlos 11/07/2019 12:35 AM CARTRIDGE ASSEMBLER [facility] Comment:Antibodies to HCV no t detected; does not exclude the possibility of exposure to HCV. Blood BLOOD SPECIMEN / Unknown Butterfly / Unknown 11/06/2019 2:08 PM CARTRIDGE ASSEMBLER 11/06/2019 2:08 PM CARTRIDGE ASSEMBLER Lee Ann Delcid MD SEND OUTS [facility] [address] [place] [address], from Last 3 Months or Most Recently Relevant to Health Maintenance Advance Directives * Full Code (Latest Code Status on File) Date Activated Date Inactivated Comments 11/07/2022 11:08 AM 11/07/2022 4:14 PM Question Answer Comments Code Status Discussion: Unable to Assess Preferences, Provider to review later Care Teams Assistant Dean Of Students Relationship Specialty Start Date End Date Rosario [place]ner [place] [address] PCP - General Family Practice 02/21/23
--- OUTSIDE RECORDS SUMMARY | 2024-03-18 03:57 | XMS_ITS | Encounter Summary ---
Author Organization [facility] Address [address] [place] [address] Care Team Providers Care Medicine Teacher Name Role Phone Unavailable Primary Care Provider Unavailabl e Reason for Referral * Specialty Diagnoses / Procedures Referred By Contac t Referred To Contact Vee Ron P.A.-C., M.S. [address] [place] [phone] [facility] Region Referral ID Status Reason Start Date Expiration Date Visits Re quested Visits Authorized * Outpatient (Routine) - Authorized Specialty Diagnoses / Procedures Referred By Contac t Referred To Contact Radiation Oncology Bernie Joseph M.D. [address] [place] [phone] [facility] Region Referral ID Status Reason Start Date Expiration Date V isits Requested Visits Authorized [id number] Authorized 02/13/2024 08/14/2025 10 10 * Radiation Therapy (Routine) - Authorized Specialty Diagnoses / Procedures Referred By Contac t Referred To Contact Diagnoses 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 (HCC) Procedures Management Visit Bernie Joseph M.D. [address] [place] [phone] [facility] Region Referral ID Status Reason Start Date Expiration Date V isits Requested Visits Authorized [id number] Authorized 02/13/2024 02/12/2025 10 10 * Radiation Therapy (Routine) - Authorized Specialty Diagnoses / Procedures Referred By Gary mak Referred To Contact Diagnoses 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 (HCC) Procedures Prior Auth Rad Tx Bernie Joseph M.D. [address] [place] [address] [facility] Referral ID Status Reason Start Date Expiration Date V isits Requested Visits Authorized [id number] Authorized 02/13/2024 02/12/2025 1 1 * Radiation Therapy (Routine) - Closed Specialty Diagnoses / Procedures Referred By Gary mak Referred To Contact Diagnoses 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 (HCC) Procedures Initial Rad Onc Treatment Planning CT Simulation Bernie Joseph M.D. 200 [place] [phone] [facility] Referral ID Status Reason Start Date Expiration Date Visits Re quested Visits Authorized [id number] Closed 02/13/2024 02/12/2025 1 1 Encounter Details Date Type Department Care Team (Late st Contact Info) Description 02/13/2024 Orders Only Department of Radiation Oncology in [place], [place] [address] [place] [phone] Vee Ron P.A.-C., M.S. [address] [place] [phone] 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 (HCC) (Primary Dx) Social History Tobacco Use Types Packs/Day Years Used Date Smoking Tobacco: Former Cigarettes 1 30 1 974 - 2003 Smokeless Tobacco: Never Dental Answer Date Recorded Dental: Regular Dentist Unknown 02/06/20 24 Sex and Gender Information Value Date Recorded Sex Assigned at Not on file Gender Identity Not on file Sexual Orientation Not on file documented as of this encounter Plan of Treatment Scheduled Orders Name Type Priority Associated Diagnoses Order Schedule Prior Auth Rad Tx Radiation Oncology Routine 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 (HCC) Ordered: 02/13/2024 Management Visit Radiation Oncology Routine 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 (HCC) 10 Occurrences starting 02/13/2024 until 02/12/2027 Scheduled Referrals Name Type Priority Associated Diagnoses Order Schedule Radiation Oncology nurse visit (clinic) Outpatient Referral Routine 10 Occurrenc es starting 02/13/2024 until 02/12/2025 Radiation Oncology - Nurse education visit (clinic) Outpatient Referral Routine 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 (HCC) Expected: 02/13/2024 (Approximate), Expires: 02/12/2025 documented as of this encounter Results * Initial Rad Onc [...] Of Breast Central Female Right (HCC)- Primary 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 (HCC) documented in this encounter
--- OUTSIDE RECORDS SUMMARY | 2024-03-18 03:57 | XMS_ITS | Encounter Summary ---
Author Organization [facility] Address [address] [place] [address] Care Team Providers Care Contracting Officer Name Role Phone Unavailable Primary Care Provider Unavailabl e Encounter Details Date Type Department Care Team (Late st Contact Info) Description 03/11/2024 10:11 AM CDT Hospital Encounter Department of Radiation Oncology in [place], [place] [address] [place] [phone] Bernie Joseph M.D. [address] [place] [phone] Social History Tobacco Use Types Packs/Day Years [...]
--- OUTSIDE RECORDS SUMMARY | 2024-03-18 03:57 | XMS_ITS ---
Author Organization 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 Past Plans No past plan information found. Radiation Treatments * Plan Last Treated On Elapsed Days Fractions Treated Prescribed Fraction Dose Prescribed Total Dose [id number] 03/12/2024 6 5 of 5 520 cGy 2,600 cGy Reference Point Last Treated On Elapsed Days Session Dose Total Dose [id number] 03/12/2024 6 520 cGy 2,600 cGy
--- OUTSIDE RECORDS SUMMARY | 2024-03-18 03:57 | XMS_ITS | Encounter Summary ---
Author Organization [facility] Address [address] [place] [address] Care Team Providers Care Claim Taker Name Role Phone Unavailable Primary Care Provider Unavailabl e Encounter Details Date Type Department Care Team (Late st Contact Info) Description 03/12/2024 10:17 AM CDT Hospital Encounter Department of Radiation Oncology in [place], [place] [address] [place] [phone] Bernie Joseph M.D. [address] [place] [phone] Social History Tobacco Use Types Packs/Day Years [...]
--- OUTSIDE RECORDS SUMMARY | 2024-03-18 03:57 | XMS_ITS | Referral Summary ---
Author Organization [facility] Address [address] [place] [address] Care Team Providers Care Furnace Fitter Name Role Phone Unavailable Primary Care Provider Unavailabl e Source Comments Patient records contain information from all sites at [facility]. For routine questions regarding patient records, call [phone] during business hours, M-F 8:00 AM - 5:00 PM Central Time. Record requests for emergency care only can be directed to [phone] at any time.[facility] Encounters Date Type Department Care Team Description 03/12/2024 10:17 AM CDT Hospital Encounter Department of Radiation Oncology in [address] [phone] Benrie Joseph M.D. 03/11/2024 10:11 AM CDT - 03/11/2024 4:01 PM CDT Hospital Encounter Department of Radiation Oncology in [address] [phone] Bernie Joseph M.D. 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 03/08/2024 10:25 AM CDT Hospital Encounter Department of Radiation Oncology in [address] [phone] Bernie Joseph M.D. 03/07/2024 10:21 AM CDT Hospital Encounter Department of Radiation Oncology in [address] [phone] Bernie Joseph M.D. 03/06/2024 11:12 AM CDT Hospital Encounter Department of Radiation Oncology in [address] [phone] Bernie Joseph M.D. 02/28/2024 2:00 PM CDT - 02/28/2024 5:13 PM CDT Hospital Encounter Department of Radiation Oncology in [address] [phone] Bernie Joseph M.D. 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 024 Social History Tobacco Use Types Packs/Day Years Used Date Smoking Tobacco: Former Cigarettes 974 - 2003 Smokeless Tobacco: Never Tobacco Cessation:Counseling Given: Not [...] Mass Index - - Plan of Treatment Not on file Procedures Procedure Name Priority Date/Time Associated Diagnosis Comments [facility] DA[facility] T[facility]AT[facility] INFORMATION Routine 03/12/2024 10:51 AM CDT ARIA DAILY TREATMENT INFORMATION Routine 03/11/2024 10:40 AM CDT ARIA DAILY TREATMENT INFORMATION Routine 03/08/2024 10:38 AM CDT ARIA DAILY TREATMENT INFORMATION Routine 03/07/2024 10:38 AM CDT [facility] DAILY TREATMENT INFORMATION Routine 03/06/2024 11:39 AM CDT [facility] COURSE COMPLETE TREATMENT INFORMATION Routine 03/05/2024 10:31 [...] Elapsed Days 6 SAMSON ARIA Reference Point [id number] SAMSON ARIA Dosage Given to Date cGy 2600 SAMSON ARIA Session Dosage Given 520 SAMSON ARIA Plan ID [id number] SAMSON ARIA Fractions Treated to Date 5 SAMSON ARIA Planned Total Fractions 5 SAMSON ARIA Prescribed Dose Per Fraction 520 SAMSON ARIA Prescription Dose in cGy 2600 SAMSON ARIA Plan Primary Reference Point [id number] SAMSON ARIA 03/12/2024 10:5 1 AM CDT Provider Not In System RADIATION ONCOLOG Y ORDERABLES [facility] na * Aria Course Complete Treatment Information [...] Not In System RADIATION ONCOLOG Y ORDERABLES CHAPIN COLLIER na * Initial Rad Onc Treatment Planning CT Simulation (02/28/2024 2:00 PM CDT) Narrative SAMSON ARIA - 02/28/2024 2:00 PM CDT Morenita Prado, RTT ? 02/28/2024 ??2:31 PM Initial Rad Onc Treatment Planning CT Simulation Performed by: Bernie Joseph M.D. Authorized by: Bernie Joseph M.D. ?? Bernie Joseph M.D. RADIATION ONCOLOG Y ORDERABLES CHAPIN COLLIER na * MM surgical specimen RT-Outside Mammogram (01/25/2024 12:40 PM CDT) Only the most recent of4 resultswithin the time period is included. Narrative [facility] - 02/13/2024 9:14 AM CDT This order [...] System IMG BI PROCEDURES Performing Organization Address [facility] de Phone Number [facility] NA * US BREAST NEEDLE LOC RT-Outside US Breast (01/25/2024 11:05 AM CDT) Only the most recent of3 resultswithin the time period is included. Narrative [facility] - 02/13/2024 9:14 AM CDT This order [...] System IMG BI PROCEDURES Performing Organization Address [facility] de Phone Number [facility] NA * US biopsy lymph axillary-Outside US (01/02/2024 9:25 AM CDT) Narrative [facility] - 02/13/2024 9:14 AM CDT This order [...] System IMG US PROCEDURES Performing Organization Address [facility] de Phone Number [facility] NA from Last 3 Months or Most Recently Relevant to Health Maintenance
== END 2024-03-17 09:43 | disposition home or self-care (01) ==
PROVIDERS: PCP Family Medicine; Referring Provider Family Medicine; Visit Provider Physician Assistant
DX: N30.01 Acute cystitis with hematuria (principal)
CPT/HCPCS: 87086

== ENCOUNTER 2024-03-21 14:27 | Outpatient (CLI) | payer MEDICARE, OTHER, SELFPAY ==
--- NOTE | 2024-03-21 14:30 | CRLHL7_ITS ---
For Patients: As a result of the Century Cures Act, medical imaging exams and procedure reports are released immediately into your electronic medical record. You may view this report before your referring provider. If you have questions, please contact your health care provider. DXA BONE MINERAL DENSITY STUDY Reason for exam: History of breast cancer. Current height (inches): 65 Weight (lbs.): 170 Menopause age: 49 Ethnicity: White 1. Have you had a previous hip or vertebral fracture? No. 2. Have you had any fractures during your adult life which did not result from significant trauma (e.g., auto accident)? No. 3. Did either of your parents have a hip fracture? Yes. 4. Do you smoke? No. 5. Have you ever taken Glucocorticoids? No. 6. Do you have rheumatoid arthritis? No. 7. Do you have secondary osteoporosis? No. 8. Do you drink 3 or more alcoholic drinks per day? No. 9. Are you being treated for osteoporosis? No. 10. Have you ever taken any of the following medications: Actonel, Evista, Fosamax, Miacalcin, Reclast, Boniva, Forteo, HRT (i.e., estrogen/hormone therapy), Protelos, Prolia, Vitamin D, Calcium, other ??? please specify. ANSWER: Yes; vitamin D, calcium. 11. Do you have any of the following medical conditions: Anorexia or bulimia, asthma or emphysema, end stage renal disease, hyperparathyroidism, any seizure disorders, cancer, inflammatory bowel diseases, hysterectomy, other ??? please specify. ANSWER: Yes; Cancer and hysterectomy. 12. What was your maximum height (inches)? 65. 13. Do you perform weightbearing exercise regularly? No. 14. Do you regularly consume dairy products? No. 15. Do you drink caffeinated beverages? Yes. 16. At what age did your period start? 17. 17. Are you premenopausal? No. 18. How many full-term pregnancies have you had? 0. 19. Have you ever missed your period for more than 6 months in a row (not including or menopause)? No. TECHNIQUE: Bone mineral density study was performed using the [employer]. FINDINGS: The results of the study expressed as bone mineral density (BMD) are as follows: Lumbar Spine L1 and L4: BMD: 0.957 g/cm2. T-score: -0.7. Z-score: 1.8. Neck Left: BMD: 0.804 g/cm2. T-score: -0.4. Z-score: 1.8. Right: BMD: 0.804 g/cm2. T-score: -0.4. Z-score: 1.8 Total Left: BMD: 0.922 g/cm2. T-score: -0.2. Z-score: 1.8. Right: BMD: 0.945 g/cm2. T-score: 0.0. Z-score: 1.9. IMPRESSION: Normal bone density. LONG SEXTON M.D. Diagnostic Radiologist [email or web address] Transcribed: 2:[address]/Dictated by: Long Sexton MD @ 03/22/2024 8:17:00 AM (Electronically Signed)
== END 2024-03-21 14:28 | disposition home or self-care (01) ==
LOC: RAD 14:28
PROVIDERS: PCP Family Medicine; Visit Provider Internal Medicine Hematology & Oncology
DX: N95.9 Unspecified menopausal and perimenopausal disorder (principal); Z85.3 Personal history of malignant neoplasm of breast
CPT/HCPCS: 77080

== ENCOUNTER 2024-04-13 12:55 | Outpatient (CLI) | payer MEDICARE, OTHER, SELFPAY | END 2024-04-13 12:56 | disposition home or self-care (01) | LOC: NFLDREF 04-15 13:16 | PROVIDERS: PCP Family Medicine; Referring Provider Family Medicine; Visit Provider Nurse Practitioner | DX: R30.0 Dysuria (principal); N30.01 Acute cystitis with hematuria | CPT/HCPCS: 87086 ==

== ENCOUNTER 2024-07-03 10:00 | Outpatient (RCR) | payer MEDICARE, OTHER, SELFPAY ==
--- NOTE | 2024-02-08 11:44 | ONC.NURNOTE ---
Oncotype testing requested via online portal. Patient will follow up with Dr. Rutledge 02/26 to discuss results. Rad/Onc referral was already placed by Dr. Watts at surgery follow up visit. Patient instructed to wait for this consultation until after Oncotype results are available.
--- NOTE | 2024-02-29 13:24 | ONC.NURNOTE ---
I spoke with patient re: plan of care. Patient will start radiation on 03/06 and will complete 03/12. Patient scheduled to return and see Dr. Rutledge 04/02 to review DEXA and discuss endocrine therapy. Patient verbalizes understanding of plan.
--- NOTE | 2024-04-15 15:50 | ONC.NURNOTE ---
Pt called to say she was seen in urgent cart 03/17 for UTI. she finished 10 days of antibiotics. states started Anastrozole 04/03. States seen 04/13 urgent care for reoccuring symptoms of UTI. was called today with a normal urine culture. states still urinary frequency . urgently. no blood. states feeling better. states pushing water intake. enc her to call back tomorrow if still uncomfortable or feeling worse.
== END 2024-08-05 23:59 | disposition home or self-care (01) ==
LOC: CCIC 10:00
PROVIDERS: PCP Family Medicine; Visit Provider Internal Medicine Hematology & Oncology
DX: C50.911 Malignant neoplasm of unspecified site of right female breast (principal); Z17.0 Estrogen receptor positive status [ER+]; Z85.3 Personal history of malignant neoplasm of breast; Z79.811 Long term (current) use of aromatase inhibitors; I25.10 Atherosclerotic heart disease of native coronary artery without angina pectoris
CPT/HCPCS: 99202; 99205; 99214; 99215; G0463

== ENCOUNTER 2024-08-21 10:19 | Outpatient (CLI) | payer MEDICARE, OTHER, SELFPAY ==
--- NOTE | 2024-08-21 10:15 | CRLHL7_ITS ---
For Patients: As a result of the Century Cures Act, medical imaging exams and procedure reports are released immediately into your electronic medical record. You may view this report before your referring provider. If you have questions, please contact your health care provider. Indication: Localized enlarged lymph nodes Technique: Grayscale and color Doppler ultrasound of the right axilla performed. Comparison: 01/02/2024 Findings: Previous biopsy clip again noted within a similar lymph node measuring 2.4 x 0.5 x 1.0 cm. Additional smaller lymph node measures 1.1 x 0.4 x 0.6 cm. Normal vascularity. Normal central fatty rosalind. Impression: Similar appearance of right axillary lymph nodes. Dictated by Julio Cesar Goyal MD @ 08/21/2024 11:27:55 AM (Electronically Signed)
== END 2024-08-21 10:20 | disposition home or self-care (01) ==
LOC: US 10:20
PROVIDERS: PCP Family Medicine; Visit Provider Internal Medicine Hematology & Oncology
DX: R59.0 Localized enlarged lymph nodes (principal)
CPT/HCPCS: 76882

== ENCOUNTER 2025-01-23 11:00 | Outpatient (RCR) | payer MEDICARE, OTHER, SELFPAY | END 2025-04-01 23:59 | disposition home or self-care (01) | LOC: CCIC 11:00 | PROVIDERS: PCP Family Medicine; Visit Provider Physician Assistant | DX: C50.911 Malignant neoplasm of unspecified site of right female breast (principal); Z17.0 Estrogen receptor positive status [ER+]; Z79.811 Long term (current) use of aromatase inhibitors; R23.2 Flushing; Z87.891 Personal history of nicotine dependence; Z85.3 Personal history of malignant neoplasm of breast; L29.9 Pruritus, unspecified | CPT/HCPCS: 99213; 99214; G0463 ==